=== PATIENT | female | born 1960 | race Caucasian/White ===

== ENCOUNTER 2016-09-10 18:15 | Inpatient (IN) | payer MEDICARE ==
[~2016-09-10] VITALS: Ht 154.9 cm; Wt 113.4 kg
[~2016-09-10 18:15] MED LIST: CIPR500T94 PO; CLON0.5T PO; DABI150C PO; DICY10CA3 PO; DICY10CA53 PO; DIGO0.25 PO; FLUT16SP2 NS; HYDR-2672 PO; LEVO500T38 PO; LIDO700A4 TP; LISI10TA2 PO; METF500T4 PO; METH10TA2 PO; NORT25CA PO; NORT50CA PO; OMEP20TA PO; PANT40TA3 PO; PARO20TA2 PO; PARO20TA55 PO; SUCR1TAB PO; TEMA30CA PO; TRIA1CAP3 PO; TRIA1TAB3 PO; WARF1TAB PO; WARF2TAB PO; WARF2TAB7 PO; WARF5TAB PO; ZOLP10TA4 PO
[2016-09-10 19:52] LABS: BASO % 0 % (0-3); EOS % 3 % (0-3); HEMATOCRIT 34.3 % (36.0-47.0); HEMOGLOBIN 10.5 g/dL (12.0-15.5); LYMPH # 3.4 x10^3/uL (1.0-4.8); LYMPH % 35 % (24-48); MEAN CORPUSCULAR HEMOGLOBIN 23 pg (25-35); MEAN CORPUSCULAR HGB CONC 31 g/dL (31-37); MEAN CORPUSCULAR VOLUME 75 fL (79-100); MONO % 5 % (0-9); NEUT % 57 % (31-73); PLATELET COUNT 393 x10^3/uL (140-400); RED BLOOD COUNT 4.55 x10^6/uL (3.50-5.40); RED CELL DISTRIBUTION WIDTH 18.1 % (11.5-14.5); WHITE BLOOD COUNT 9.9 x10^3/uL (4.0-11.0)
[2016-09-10 20:11] LABS: INR 2.7 (0.8-1.1); PROTHROMBIN TIME PATIENT 27.3 SEC (11.7-14.0)
--- NOTE | 2016-09-10 20:33 | RAD ---
PROCEDURE CT head without contrast HISTORY Increasing left-sided weakness TECHNIQUE Noncontrast axial cross sectional CT scanning of the head was performed. COMPARISON May 28, 2008 FINDINGS No acute intracranial hemorrhage or midline shift or mass-effect or hydrocephalus or extra-axial fluid collection is seen. No focal hypodense area is seen to indicate an acute infarct or edema radiographically. No skull fracture or pneumocephalus is seen. No opacification of the mastoid sinuses or the paranasal sinuses is seen. The maxillary sinuses are not completely seen in this study. IMPRESSION No acute intracranial abnormality is seen. PQRS Statement: One or more of the following individualized dose reduction techniques were utilized for this study: 1. Automated exposure control. 2. Adjustment of the mA and/or kV according to patient size. 3. Use of iterative reconstruction technique. Electronically signed by: Endy Sanders MD (Sep 10, 2016 20:32:51)
[2016-09-10 21:33] LABS: CALCIUM 9.1 mg/dL (8.5-10.1); CREATININE 2.1 mg/dL (0.6-1.0); GFR 24.3; POTASSIUM 5.1 mmol/L (3.5-5.1)
[2016-09-10 21:39] LABS: ALBUMIN 3.7 g/dL (3.4-5.0); TOTAL BILIRUBIN 0.2 mg/dL (0.2-1.0); TOTAL PROTEIN 7.5 g/dL (6.4-8.2)
[2016-09-10 21:46] LABS: BILIRUBIN,URINE NEGATIVE (NEG); GLUCOSE,URINE NEGATIVE (NEG); NITRITE,URINE NEGATIVE (NEG); PH,URINE 5.5; PROTEIN,URINE NEGATIVE (NEG-TRACE); UROBILINOGEN,URINE 0.2 mg/dL (0.2 mg/dL)
[2016-09-10 21:53] LABS: BARBITURATES NEG (NEG); BENZODIAZEPINES POS (NEG); CANNABINOIDS NEG (NEG); COCAINE NEG (NEG); METHADONE NEG (NEG); OPIATES POS (NEG); PHENCYCLIDINE NEG (NEG)
[2016-09-10 21:55] LABS: ETHANOL, URINE NEG (NEG); RBC,URINE 0 /HPF (0-2)
[2016-09-10 21:56] LABS: BACTERIA,URINE 0 /HPF (0-FEW); SQUAMOUS EPITHELIAL CELL,UR OCC /LPF
[2016-09-10] MEDS ORDERED: IV NORMAL SALINE 1000ML BAG 1,000 ML IV ONE (22:00)
[2016-09-10] MEDS ORDERED: FENTANYL PF 100 MCG/2 ML VIAL. ONE (22:01)
[2016-09-10] MEDS ORDERED: NITROGLYCERIN SUBLINGUAL 0.4 MG BOTTLE OF 25. SL ONE (22:01)
[2016-09-10] MEDS ORDERED: ONDANSETRON PF 4 MG/2 ML VIAL. ONE (22:01)
[2016-09-10] MEDS: FENTANYL PF 100 MCG/2 ML VIAL. IV PRN ×2 (22:06→22:43)
[2016-09-10] MEDS: NITROGLYCERIN SUBLINGUAL 0.4 MG BOTTLE OF 25. SL PRN (22:09)
[2016-09-10] MEDS ORDERED: ONDANSETRON PF 4 MG/2 ML VIAL. IV ONE (22:30)
[2016-09-10] MEDS ORDERED: ACETAMINOPHEN 325 MG TABLET. PO ONE (22:30)
--- NOTE | 2016-09-10 23:12 | ED.ADGEN ---
Past Medical History Past Medical History: A-Fib, CAD, COPD, Fibromyalgia, IBS, Other Additional Past Medical Histor: Ulcer, tremors, histoplasmosis Past Surgical History: Appendectomy, Cholecystectomy, Hysterectomy, Tonsillectomy Additional Past Surgical Histo: pericardial window Alcohol Use: None Drug Use: None Adult General Chief Complaint Chief Complaint: CHEST WALL PAIN HPI HPI Patient is a 56 year old woman with a history of COPD, CAD, hypertension, fibromyalgia, who presents to the emergency department with multiple complaints. Patient states that she has been experiencing palpitations, generalized weakness, chest pain across anterior portion of her chest, and increasing weakness and her left upper and lower extremity over the past several days. Patient states that this consolation of symptoms brought her to the ED after she discussed them with her fancy wire drawer, Dr. Nielsen. She did recently have a Holter monitor, but has not yet received the results. Patient states that she is not having chest pain currently, states the pain is located in the center of her chest, and comes and goes, described as a sharp pressure- like sensation, associated with palpitations. Patient states that she has not actually had a seizure activity or passed out, but has felt like she is going to pass out at times, states that she is also having difficulty ambulating with weakness in her left upper and lower extremity which is chronic, due to a neurologic condition. She denies any new injuries, any fevers or chills, any cough, any GI or complaints, states she has had decreased urinary output over the past 2 days. Review of Systems Review of Systems Constitutional: Denies fever or chills. [] Eyes: Denies change in visual acuity. [] HENT: Denies nasal congestion or sore throat. [] Respiratory: Denies cough or shortness of breath. [] Cardiovascular: Chest pain, no edema. GI: Denies abdominal pain, nausea, vomiting, bloody stools or diarrhea. [] : Denies dysuria. [] Musculoskeletal: Denies back pain or joint pain. [] Integument: Denies rash. [] Neurologic: Denies headache, complaining of worsening left upper extremity and lower extremity weakness. No sensory changes. [] Endocrine: Denies polyuria or polydipsia. [] Lymphatic: Denies swollen glands. [] Psychiatric: Denies depression or anxiety. [] Allergies Allergies Allergies Coded Allergies Type Severity Reaction Last Updated Verified Penicillins Allergy Severe rash, swelling 05/24/14 Yes Sulfa (Sulfonamide Antibiotics) Allergy Severe rash 04/03/15 Yes aspirin Allergy Severe rash, vomiting 04/03/15 Yes iodine Allergy Severe rash 04/03/15 Yes morphine Allergy Severe Rash, swelling 05/24/14 No Beta-Blockers (Beta-Adrenergic Bloc Allergy Intermediate Hives 08/24/14 Yes NSAIDS (Non-Steroidal Anti-Inflamma Allergy Mild Hives 11/09/14 Yes Physical Exam Physical Exam Constitutional: Well developed, well nourished, mildly flushed and diaphoretic, no acute distress, non-toxic appearance. [] HENT: Normocephalic, atraumatic, bilateral external ears normal, oropharynx moist, no oral exudates, nose normal. [] Eyes: PERRLA, EOMI, conjunctiva normal, no discharge. [] Neck: Normal range of motion, no tenderness, supple, no stridor. [] Cardiovascular:Heart rate regular rhythm, no murmur , S1, S2, rubs or gallops. Unable to reproduce chest pain with palpation, no crepitus or tenderness. [] Lungs & Thorax: Diminished breath sounds at bases bilaterally, no wheezing rhonchi or rales noted. [] Abdomen: Bowel sounds normal, soft, no rebound, rigidity, no guarding, no tenderness, no masses, no pulsatile masses. [] Skin: Warm, dry, no erythema, no rash. [] Back: No tenderness, no CVA tenderness. [] Extremities: No tenderness, no cyanosis, no clubbing, ROM intact, no edema. Negative Homans sign. [] Neurologic: Alert and oriented X 3, normal motor function, normal sensory function, no focal deficits noted. [] Psychologic: Affect normal, judgement normal, mood normal. [] Current Patient Data Vital Signs Vital Signs Date Time Temp Pulse Resp B/P Pulse Ox O2 Delivery O2 Flow Rate FiO2 09/10/16 18:30 98.5 77 22 131/72 97 Room Air 98.5 Lab Values Laboratory Tests Test 09/10/16 19:20 09/10/16 21:30 White Blood Count 9.9x10^3/uL (4.0-11.0) Red Blood Count 4.55x10^6/uL (3.50-5.40) Hemoglobin 10.5g/dL (12.0-15.5) L Hematocrit 34.3% (36.0-47.0) L Mean Corpuscular Volume 75fL (79-100) L Mean Corpuscular Hemoglobin 23pg (25-35) L Mean Corpuscular Hemoglobin Concent 31g/dL (31-37) Red Cell Distribution Width 18.1% (11.5-14.5) H Platelet Count 393x10^3/uL (140-400) Neutrophils (%) (Auto) 57% (31-73) Lymphocytes (%) (Auto) 35% (24-48) Monocytes (%) (Auto) 5% (0-9) Eosinophils (%) (Auto) 3% (0-3) Basophils (%) (Auto) 0% (0-3) Neutrophils # (Auto) 5.7x10^3uL (1.8-7.7) Lymphocytes # (Auto) 3.4x10^3/uL (1.0-4.8) Monocytes # (Auto) 0.5x10^3/uL (0.0-1.1) Eosinophils # (Auto) 0.3x10^3/uL (0.0-0.7) Basophils # (Auto) 0.0x10^3/uL (0.0-0.2) Prothrombin Time 27.3SEC (11.7-14.0) H Prothrombin Time INR 2.7 (0.8-1.1) H PTT 75SEC (24-38) H Sodium Level 139mmol/L (136-145) Potassium Level 5.1mmol/L (3.5-5.1) Chloride Level 103mmol/L (98-107) Carbon Dioxide Level 24mmol/L (21-32) Anion Gap 12 (6-14) Blood Urea Nitrogen 37mg/dL (7-20) H Creatinine 2.1mg/dL (0.6-1.0) H Estimated GFR (Cockcroft-Gault) 24.3 BUN/Creatinine Ratio 18 (6-20) Glucose Level 114mg/dL (70-99) H Calcium Level 9.1mg/dL (8.5-10.1) Total Bilirubin 0.2mg/dL (0.2-1.0) Aspartate Amino Transferase (AST) 56U/L (15-37) H Alanine Aminotransferase (ALT) 54U/L (14-59) Alkaline Phosphatase 107U/L (46-116) Troponin I Quantitative < 0.017ng/mL (0.000-0.055) WO-Rss-T-Type Natriuretic Peptide 134pg/mL (0-124) H Total Protein 7.5g/dL (6.4-8.2) Albumin 3.7g/dL (3.4-5.0) Albumin/Globulin Ratio 1.0 (1.0-1.7) Lipase 272U/L (73-393) Thyroid Stimulating Hormone (TSH) 1.962uIU/mL (0.358-3.74) Urine Color Yellow Urine Clarity Clear Urine pH 5.5 Urine Specific [place] 1.010 Urine Protein Negativemg/dL (NEG-TRACE) Urine Glucose (UA) Negativemg/dL (NEG) Urine Ketones (Stick) Negativemg/dL (NEG) Urine Blood Negative (NEG) Urine Nitrite Negative (NEG) Urine Bilirubin Negative (NEG) Urine Urobilinogen Dipstick 0.2mg/dL (0.2 mg/dL) Urine Leukocyte Esterase Small (NEG) Urine RBC 0/HPF (0-2) Urine WBC 1-4/HPF (0-4) Urine Squamous Epithelial Cells Occ/LPF Urine Transitional Epithelial Cells Occ/LPF Urine Renal Epithelial Cells Occ/LPF Urine Bacteria 0/HPF (0-FEW) Urine Hyaline Casts Occasional/HPF Urine Granular Casts Occasional/HPF Urine Opiates Screen Pos (NEG) Urine Methadone Screen Neg (NEG) Urine Barbiturates Neg (NEG) Urine Phencyclidine Screen Neg (NEG) Urine Amphetamine/Methamphetamine Neg (NEG) Urine Benzodiazepines Screen Pos (NEG) Urine Cocaine Screen Neg (NEG) Urine Cannabinoids Screen Neg (NEG) Urine Ethyl Alcohol Neg (NEG) Laboratory Tests 09/10/16 19:20 Laboratory Tests 09/10/16 19:20 EKG EKG C: Sinus rhythm, heart rate 80 beats minute, incomplete right bundle- branch block noted, QTc of or 28, GA of 112, QRS of 96, patient with T-wave inversions noted in lead V3, with flattening in inferior leads, abnormal ECG, does not meet STEMI criteria. As interpreted by me. [] Radiology/Procedures Radiology/Procedures Chest x-ray: One view: Normal cardiopulmonary silhouette, no infiltrates, no effusions, no soft tissue or bony abnormalities identified. As interpreted by me. [] Course & Med Decision Making Course & Med Decision Making Pertinent Labs and Imaging studies reviewed. (See chart for details) Chest wall pain resolved in the emergency department, however with her constellation of symptoms, a CT of the head along with x-ray of the chest and laboratory studies were obtained. Patient noted to have an elevated creatinine at 2.1, previously was 1.1, with a an elevated blood urea nitrogen. Patient states that previously she has had these type of feelings when she has been dehydrated, therefore IV fluids were initiated in the ED. Patient's laboratory studies otherwise did not reveal a concerning findings, including a negative troponin. I did discuss these findings with the patient, and with Dr. Lewis, on-call for her primary care provider, he accepted the patient to his service, and she is agreeable with the plan for admission to the hospital for IV hydration, serial enzymes, consultation with cardiology, bridge orders entered per Dr. Lewis request. Dragon Disclaimer Dragon Disclaimer This electronic medical record was generated, in whole or in part, using a voice recognition dictation system. Departure Impression: Primary Impression: Dehydration Additional Impressions: Generalized weakness Chest wall pain Disposition: ADMITTED INPATIENT Admitting Physician: Ty Lewis Condition: IMPROVED Problem Qualifiers GUERA SHIRLEY DO Sep 10, 2016 23:12
[2016-09-10 23:26] LABS: OBC FLU VALID
[2016-09-11] VITALS (7 sets, daily range): BP systolic 102–152; BP diastolic 54–109
[2016-09-11] MEDS ORDERED: METO50TA10 PO (00:43)
[2016-09-11] MEDS ORDERED: HYDR-2672 PO (00:43)
[2016-09-11] MEDS ORDERED: FLUC150T2 PO (00:43)
[2016-09-11] MEDS ORDERED: SUCR1TAB PO (00:43)
[2016-09-11] MEDS ORDERED: NYST15CR TP (00:43)
[2016-09-11] MEDS ORDERED: LISI-334 PO (00:43)
[2016-09-11] MEDS ORDERED: TRIA1CAP3 PO (00:43)
[2016-09-11] MEDS ORDERED: FURO40TA4 PO (00:43)
[2016-09-11] MEDS ORDERED: GABA300C8 PO (00:43)
[2016-09-11] MEDS ORDERED: BACL10TA PO (00:43)
[2016-09-11] MEDS ORDERED: WARF3TAB7 PO (00:43)
[2016-09-11] MEDS: NITROGLYCERIN SUBLINGUAL 0.4 MG BOTTLE OF 25. SL PRN ×2 (00:53→01:00)
--- NOTE | 2016-09-11 06:39 | EKG ---
[facility] [address] [place] [address] Test Date: 2016-09-10 Test Time: 18:31:30 Pat Name: NICO ADRIAN Department: Room: [facility] Gender: F Recovery Room Rn: : [id number] Requested By: GUERA SHIRLEY Order Number: [id number] Reading MD: Spring Nielsen Measurements Intervals [place] Rate: 80 P: 170 OR: 112 QRS: 23 QRSD: 96 T: 28 QT: 368 QTc: 428 Interpretive Statements SINUS RHYTHM LEFT ATRIAL ABNORMALITY INCOMPLETE RIGHT BUNDLE BRANCH BLOCK ABNORMAL ECG Electronically Signed On 09-15-2016 19:34:45 CERTIFIED SURGICAL TECHNICIAN by Spring Nielsen
--- NOTE | 2016-09-11 08:59 | RAD ---
EXAM: Chest one view. HISTORY: Shortness of breath, cough, palpitations. COMPARISON: 07/25/2015. FINDINGS: A frontal view of the chest is obtained. The inspiration is small with bibasilar atelectasis. There is a calcified granuloma in the right base. There is no pneumothorax or pleural effusion. The heart is mildly enlarged. There are changes of coronary artery bypass grafting. IMPRESSION: 1. Small inspiration with bibasilar atelectasis. 2. Mild cardiomegaly.
[2016-09-11] MEDS ORDERED: CLONAZEPAM 0.5 MG TABLET PO PRN (09:45)
[2016-09-11] MEDS: LIDOCAINE (700MG/PATCH) PATCH. TP SCH ×2 (10:00→11:08)
[2016-09-11] MEDS: GABAPENTIN 300 MG CAPSULE. PO SCH ×2 (10:57→20:36)
[2016-09-11] MEDS: HYDROCODONE/APAP 10/325 TABLET. PO PRN ×2 (10:57→15:38)
[2016-09-11] MEDS: PAROXETINE 20 MG TABLET. PO SCH (10:58)
[2016-09-11] MEDS: METOPROLOL SUCC 24HR ER 50 MG TAB.ER.24H. PO SCH (10:58)
[2016-09-11] MEDS: FUROSEMIDE 40 MG TABLET PO SCH (10:59)
[2016-09-11] MEDS: DICYCLOMINE HCL 10 MG CAPSULE PO SCH ×3 (10:59→20:36)
[2016-09-11] MEDS: BACLOFEN 10 MG TABLET PO SCH ×3 (11:03→20:36)
[2016-09-11] MEDS: PANTOPRAZOLE 40 MG TABLET. PO SCH (11:03)
[2016-09-11] MEDS: FLUTICASONE 50MCG/NASAL SPRAY 16GM BOTTLE. NS SCH (11:04)
[2016-09-11] MEDS: SUCRALFATE 1 GM TABLET. PO SCH ×3 (12:18→20:36)
[2016-09-11] MEDS: IV 1/2 NORMAL SALINE 1,000 ML IV SCH ×2 (12:19→20:42)
[2016-09-11] MEDS ORDERED: WARFARIN 3 MG TABLET. PO SCH (16:00)
[2016-09-11] MEDS ORDERED: METFORMIN 500 MG TABLET. PO SCH (17:00)
[2016-09-11] MEDS ORDERED: TEMAZEPAM 15 MG CAPSULE PO SCH (21:00)
--- NOTE | 2016-09-11 22:06 | HP ---
ADMIT DATE: 09/11/2016 CHIEF COMPLAINT: Generalized weakness. HISTORY OF PRESENT ILLNESS AND HOSPITAL COURSE: The patient is a 56-year-old female who began having increasing weakness, feeling she was going to pass out, also experiencing palpitations and chest pain across the front of her chest and in her upper extremities, which was reproducible with movement. The patient called her machine presser who recently had a Holter monitor on her but no results were present yet. She was recommended to go to the Emergency Room for evaluation. During evaluation, no cardiac findings were noted, but the patient was found to be markedly dehydrated with a BUN of 37, creatinine of 2.1 with baseline BUN and creatinine of 13 and 0.9. The patient was weak and unable to care for herself; therefore, she was admitted for further evaluation, hydration and PT and OT modalities. PAST MEDICAL HISTORY: Significant for: 1. History of ____ with pericardial effusion status post pericardial window. 2. Fibromyalgia. 3. Chronic atrial fibrillation. 4. Type 2 diabetes. 5. Hypertension. 6. Irritable bowel syndrome. 7. Fibromyalgia. 8. Generalized anxiety disorder. 9. Obesity. PAST SURGICAL HISTORY: Significant for sternotomy for pericardial window, tubal ligation, hysterectomy, eye surgery, tonsil and adenoidectomy and appendectomy. FAMILY HISTORY: Noncontributory at this time. SOCIAL HISTORY: The patient quit smoking in 1982. She does not use alcohol, lives with her who assists in her care. She is minimally mobile and uses a wheelchair frequently. ALLERGIES: THE PATIENT HAS MULTIPLE ALLERGIES INCLUDING PENICILLIN, SULFA, ASPIRIN, MOTRIN, CELEBREX, INDOMETHACIN, IODINE, MORPHINE AND ZEBETA. REVIEW OF SYSTEMS: Negative for diarrhea, fever, cough or congestion but is significant for new syncope, palpitations, weakness and chest pains. PHYSICAL EXAMINATION: GENERAL: This is a morbidly obese female in no apparent distress after 12 hours of hospitalization and IV fluids. HEENT: Benign. NECK: Supple. CARDIAC: Irregularly irregular. LUNGS: Clear. ABDOMEN: Soft and nontender. EXTREMITIES: Showed 2+ pulses without significant edema. NEUROLOGIC: Intact. ASSESSMENT: 1. Acute renal failure due to prerenal azotemia. 2. Chronic pain issues. 3. Morbid obesity. 4. Generalized weakness and debilitation. PLAN: To proceed with IV hydration, PT and OT modalities and monitor the patient's symptoms and plan for discharge once stable. SHANNAN VIZCAINO MD DR: ARNOLD/jinny JOB#: [id number] / [id number]
--- NOTE | 2016-09-11 23:04 | ACF ---
Admission Forms Criteria DEHYDRATION Clinical Indications for Admission to Inpatient Care (Place 'X' for any and all applicable criteria): Admission is indicated for ANY ONE of the following (1)(2)(3)(4)(5): [X]I. Inpatient admission required rather than observation care (see Dehydration: Observation Care guideline as appropriate) because of ANY ONE of the following: [ ]a) Vomiting that is severe or persistent [ ]b) Severe electrolyte abnormalities requiring inpatient care [ ]c) Hemodynamic instability [ ]d) IV fluid to replace significant ongoing losses (greater than 3 L/m2 per day (10) (11) [ ]e) Parenteral nutrition regimen that must be implemented on inpatient basis [X]f) Other condition,treatment or monitoring requiring inpatient admission [ ]II. Serious cause for dehydration requiring acute hospitalization (eg, bowel obstruction, increased intracranial pressure, infectious cause) Extended stay beyond goal length of stay may be needed for(1)(3 )(4)(17): [ ]a) Chronic severe dehydration [ ]b) Persistent vital sign changes, severe electrolyte imbalance, or diagnosed cause of dehydration that requires continued hospitalization (eg, bowel obstruction, increased intracranial pressure) [ ]c) Older patients (65 years or older) [ ]d) Severe comorbid illness (eg, renal failure, heart failure, poorly controlled diabetes) The original [email or web address] content created by [email or web address] has been revised. The portions of the content which have been revised are identified through the use of italic text or in bold, and [facility] has neither reviewed nor approved the modified material. All other unmodified content is copyright [email or web address]. Please see references footnoted in the original [email or web address] edition 2016 Admission Criteria Met?: Yes BREANA LOPEZ Sep 11, 2016 23:04
[2016-09-12 04:14] LABS: BASO # 0.1 x10^3/uL (0.0-0.2); BASO % 1 % (0-3); EOS % 3 % (0-3); HEMOGLOBIN 9.8 g/dL (12.0-15.5); LYMPH # 3.6 x10^3/uL (1.0-4.8); LYMPH % 46 % (24-48); MEAN CORPUSCULAR HEMOGLOBIN 23 pg (25-35); MEAN CORPUSCULAR HGB CONC 31 g/dL (31-37); MEAN CORPUSCULAR VOLUME 75 fL (79-100); MONO % 6 % (0-9); NEUT % 45 % (31-73); PLATELET COUNT 348 x10^3/uL (140-400); RED BLOOD COUNT 4.27 x10^6/uL (3.50-5.40); RED CELL DISTRIBUTION WIDTH 18.1 % (11.5-14.5)
[2016-09-12 04:18] LABS: INR 2.5 (0.8-1.1); PROTHROMBIN TIME PATIENT 25.7 SEC (11.7-14.0)
[2016-09-12 04:24] LABS: CALCIUM 8.8 mg/dL (8.5-10.1); CREATININE 1.4 mg/dL (0.6-1.0); GFR 38.8; POTASSIUM 4.5 mmol/L (3.5-5.1)
[2016-09-12 07:27] VITALS: BP 128/63
[2016-09-12] MEDS ORDERED: METFORMIN 500 MG TABLET. PO SCH (08:00)
[2016-09-12] MEDS: PANTOPRAZOLE 40 MG TABLET. PO SCH (08:21)
[2016-09-12] MEDS: DICYCLOMINE HCL 10 MG CAPSULE PO SCH (08:21)
[2016-09-12] MEDS: FUROSEMIDE 40 MG TABLET PO SCH (08:21)
[2016-09-12] MEDS: BACLOFEN 10 MG TABLET PO SCH (08:21)
[2016-09-12] MEDS: PAROXETINE 20 MG TABLET. PO SCH (08:21)
[2016-09-12 08:22] VITALS: BP 128/63
[2016-09-12] MEDS: METOPROLOL SUCC 24HR ER 50 MG TAB.ER.24H. PO SCH (08:22)
[2016-09-12] MEDS: SUCRALFATE 1 GM TABLET. PO SCH (08:22)
[2016-09-12] MEDS: GABAPENTIN 300 MG CAPSULE. PO SCH (08:22)
[2016-09-12] MEDS: FLUTICASONE 50MCG/NASAL SPRAY 16GM BOTTLE. NS SCH (08:23)
[2016-09-12] MEDS ORDERED: METO50TA10 PO (08:39)
--- NOTE | 2016-09-12 18:37 | DS ---
DATE OF DISCHARGE: 09/12/2016 ADMITTING DIAGNOSES: 1. Acute on chronic renal failure. 2. Prerenal azotemia. 3. Morbid obesity. 4. Generalized weakness and debilitation. 5. Chronic pain. ____ DIAGNOSES: 1. Chronic atrial fibrillation. 2. Fibromyalgia. 3. Type 2 diabetes. 4. Hypertension. 5. Irritable bowel syndrome. 6. Generalized anxiety disorder. 7. 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 8. History of Mycobacterium avium infection, resolved. 9. Metabolic encephalopathy. HISTORY OF PRESENT ILLNESS AND HOSPITAL COURSE: This patient is a 56-year-old female who came to the hospital for increasing weakness and fatigue. She also had associated chest wall pains and confusion. During Emergency Room evaluation, she was found to have marked dehydration with a BUN of 37 and a creatinine of 2.1 with a baseline of 0.9 creatinine. She was hydrated and PT and OT modalities were ordered. The patient improved with two bags of IV fluids over 24-48 hours and PT and OT modalities ____. The patient independent. The patient was back to baseline, although creatinine was not back to baseline and was at 1.4. The patient was taking p.o. diet well and was asking to go home; therefore, she was discharged to home with rapid follow up in the office in 1-2 weeks. Of note, the patient will be discontinued on triamterene/hydrochlorothiazide and did have stable to low blood pressures during hospital stay. DISCHARGE MEDICATIONS: The patient's discharge medicines will be as follows: Baclofen 10 mg t.i.d., clonazepam 0.25 mg q. 6 p.r.n., dicyclomine 10 mg t.i.d., Flonase nasal spray two sprays each nostril daily, gabapentin 300 mg b.i.d., Lortab 10 ____ q. 4 hours p.r.n. pain, metformin 500 mg b.i.d., Pamelor 50 mg at bedtime, Protonix 40 mg daily, Paxil 20 mg daily, Carafate 1 g t.i.d. with meals, temazepam 30 mg at bedtime, Coumadin ____ mg daily, metoprolol 50 mg at bedtime. SHANNAN VIZCAINO MD DR: Casey JOB#: [id number] / [id number]
== END 2016-09-12 11:05 | disposition home or self-care (01) | DRG 682 ==
LOC: ER 18:15 → 6 SOUTH 21:48
PROVIDERS: ADMIT Family Medicine; ATTEND Family Medicine
DX: N17.0 Acute kidney failure with tubular necrosis (principal); G93.41 Metabolic encephalopathy; Z68.42 Body mass index [BMI] 45.0-49.9, adult; E66.01 Morbid (severe) obesity due to excess calories; M79.7 Fibromyalgia; K58.9 Irritable bowel syndrome, unspecified; J44.9 Chronic obstructive pulmonary disease, unspecified; I48.2 Chronic atrial fibrillation; I25.10 Atherosclerotic heart disease of native coronary artery without angina pectoris; E11.22 Type 2 diabetes mellitus with diabetic chronic kidney disease; E86.0 Dehydration; F41.1 Generalized anxiety disorder; G89.29 Other chronic pain; I12.9 Hypertensive chronic kidney disease with stage 1 through stage 4 chronic kidney disease, or unspecified chronic kidney disease; N18.9 Chronic kidney disease, unspecified; R56.9 Unspecified convulsions; B39.9 Histoplasmosis, unspecified; Z79.899 Other long term (current) drug therapy; Z87.891 Personal history of nicotine dependence; Z90.49 Acquired absence of other specified parts of digestive tract; Z88.5 Allergy status to narcotic agent; Z88.0 Allergy status to penicillin; Z88.2 Allergy status to sulfonamides; Z88.8 Allergy status to other drugs, medicaments and biological substances; Z88.6 Allergy status to analgesic agent; Z91.041 Radiographic dye allergy status; Z90.710 Acquired absence of both cervix and uterus; Z98.51 Tubal ligation status
CPT/HCPCS: 36415; 70450; 71010; 80048; 80053; 81001; 82947; 83690; 83880; 84443; 84484; 85027; 85610; 85730; 87086; 87804; 93005; 96374; 96375; 96376; G0481; J2405; J3010; J7030; 99285-25

== ENCOUNTER → 2019-03-09 | Outpatient (CLI) | payer BC ==
[~2019-03-09] MED LIST changes: +BACL10TA PO; +FLUC150T2 PO; +FURO40TA4 PO; +GABA300C18 PO; -HYDR-2672 PO; +HYDR-2769 PO; +IOHEXOL 350 MG/ML 100 ML VIAL. IV ONE; -LEVO500T38 PO; +LEVO500T59 PO; +LISI-334 PO; +METF500T16 PO; -METF500T4 PO; +METO50TA29 PO; +NYST15CR TP; -OMEP20TA PO; +OMEP20TA8 PO; -PANT40TA3 PO; +PANT40TA77 PO; -PARO20TA2 PO; +PARO20TA3 PO; -PARO20TA55 PO; +PARO20TA99 PO; +WARF-78 PO; -WARF1TAB PO; +WARF1TAB74 PO; -WARF2TAB7 PO; +WARF2TAB96 PO; +WARF3TAB50 PO; -WARF5TAB PO
--- NOTE | 2019-03-09 12:46 | RAD ---
EXAM: CT chest with contrast - pulmonary embolus protocol CLINICAL HISTORY: PULMONARY HTN, ENLARGED PULMONARY ARTERY COMPARISON: Chest x-ray 07/21/2018, CT 11/14/2014 TECHNIQUE: CT of the chest following the administration of intravenous contrast during the pulmonary arterial phase. Axial, coronal and sagittal reformatted images were generated including MIP images. ---PQRS compliance statement - One or more of the following individualized dose reduction techniques were utilized for this study: 1. Automated exposure control 2. Adjustment of the mA and/or kV according to patient size 3. Use of iterative reconstruction technique--- FINDINGS: CHEST: Diagnostic quality: Adequate. Pulmonary emboli: None seen Right heart strain: None Pulmonary arteries: Pulmonary arterial trunk measures approximately 4.2 cm in transverse dimension. The right main pulmonary artery measures 3.1 cm and the left main pulmonary artery measures 2.5 cm. The heart is mildly enlarged. No pericardial effusion. Calcified granuloma right lower lobe. Vague linear and groundglass opacities in the lingula and lower lobes likely scarring/atelectasis. No lobar consolidation. No pleural effusion or pneumothorax. No mediastinal or hilar lymphadenopathy. Calcified mediastinal and hilar lymph nodes are seen. No axillary lymphadenopathy. Visualized Upper abdomen: A 7 mm right adrenal nodule contains fat density, likely myelolipoma. Suspect hepatic steatosis although evaluation limited given phase of contrast. Bones: Degenerative changes of spine are seen. IMPRESSION: 1. Prominence of pulmonary arterial trunk may be seen with pulmonary arterial hypertension, the pulmonary trunk measures up to 4.2 cm in transverse dimension. 2. Linear and groundglass opacities in the lower lobes and lingula likely scarring/atelectasis. Electronically signed by: Cisco Gonzalez MD (03/09/2019 12:44 PM) [id number]
== END | disposition home or self-care (01) ==
LOC: CT 09:56
PROVIDERS: ATTEND Family Medicine
DX: J84.10 Pulmonary fibrosis, unspecified (principal); E27.9 Disorder of adrenal gland, unspecified; M47.814 Spondylosis without myelopathy or radiculopathy, thoracic region; I28.8 Other diseases of pulmonary vessels; I27.20 Pulmonary hypertension, unspecified; E11.9 Type 2 diabetes mellitus without complications; F17.200 Nicotine dependence, unspecified, uncomplicated; Z86.69 Personal history of other diseases of the nervous system and sense organs; Z90.49 Acquired absence of other specified parts of digestive tract; Z90.710 Acquired absence of both cervix and uterus; Z79.01 Long term (current) use of anticoagulants
CPT/HCPCS: 71275; Q9967

== ENCOUNTER → 2020-09-14 | Outpatient (CLI) | payer BC ==
[~2020-09-14] MED LIST changes: -IOHEXOL 350 MG/ML 100 ML VIAL. IV ONE; -LISI-334 PO; +LISI10TA16 PO; -LISI10TA2 PO; +LISI20TA18 PO; -WARF-78 PO; +WARF1TAB2 PO; -WARF1TAB74 PO; +WARF5TAB2 PO
--- NOTE | 2020-09-14 14:50 | KCIC ---
MRI of the brain without contrast 09/14/2020 Clinical History: Worsening right hand tremors. Technique: Unenhanced T1-weighted sagittal and axial, T2-weighted axial and coronal and FLAIR, gradie nt echo and diffusion-weighted axial images of the brain were obtained. Findings: Comparison study is dated 09/16/2016. Some of the images are degraded by patient motion. There is generalized parenchymal atrophy. Patchy, confluent and multiple small focal areas of increas ed signal intensity are seen within the periventricular and subcortical white matter of both cerebral hemispheres on the FLAIR and T2-weighted images consistent with areas of mild small vessel ischemic disease. These have not significantly changed. No acute parenchymal abnormality is seen. No extra-axial fluid collection is seen. There is no MRI ev idence of acute ischemia/infarction. Mild mucosal thickening is seen scattered throughout the paranasal sinuses. There are are minimal jef ateral mastoid effusions. Normal flow voids are seen within the major vascular structures surrounding the brain parenchyma. Expansion and heterogeneity of the marrow within the right parietal bone is ag ain seen which may reflect Paget's disease. Impression: No acute parenchymal abnormality is seen. Electronically signed by: Shelton Fortune MD (09/14/2020 2:47 PM) [id number]
== END ==
LOC: KCIC MRI 08:22
PROVIDERS: ATTEND Nurse Practitioner Family
DX: G25.9 Extrapyramidal and movement disorder, unspecified (principal)
CPT/HCPCS: 70551

== ENCOUNTER 2021-08-20 11:16 | Inpatient (IN) | payer MEDICARE, MEDICAID ==
[~2021-08-20] VITALS: Ht 154.9 cm; Wt 62.0 kg
[~2021-08-20 11:16] MED LIST changes: -FLUC150T2 PO; +FLUC150T6 PO; +METH-572 PO; -METH10TA2 PO
--- NOTE | 2021-08-20 11:19 | PHYS DOC ---
Past Medical History Past Medical History: A-Fib, CAD, COPD, Fibromyalgia, IBS, Other Additional Past Medical Histor: Ulcer, tremors, histoplasmosis Past Surgical History: Appendectomy, Cholecystectomy, Hysterectomy, Tonsillectomy Additional Past Surgical Histo: pericardial window Smoking Status: Never Smoker Alcohol Use: None Drug Use: None General Adult HPI: HPI: Patient is a 61 year old who presents from home, via EMS, for report of progressively worsening dyspnea and chest pain. 1 week ago, she was diagnosed with Covid. She had been having symptoms for several days prior to testing positive. Her is currently here hospitalized with complications from COVID-19. She had only received her first Covid vaccination on August 04, so just a few weeks ago. She has reported progressively worsening cough, headache, congestion, sore throat, fevers and chills, as well as nausea and vomiting. Her chest pain has been constant, described as sharp and pleuritic, her dyspnea has also been constant. Symptoms have been progressively worsening over the last 2 to 3 days. EMS noted hypoxia on room air. The patient does not normally require supplemental oxygen. She was placed on 4 L per nasal cannula, with improvement of oxygenation into the 90s. The patient reports no known history of lung disease, though her EMR does note COPD. She denies any history of tobacco use or current tobacco use. Review of Systems: Review of Systems: Constitutional: Fevers, chills, myalgias, fatigue Eyes: Denies change in visual acuity. [] HENT: Nasal congestion, sore throat Respiratory: Nonproductive cough, dyspnea. Denies hemoptysis Cardiovascular: Chest pain GI: She denies abdominal pain symptoms. She reports nausea, vomiting, diarrhea. : Denies urinary symptom Musculoskeletal: He has chronic, diffuse myalgias and arthralgias, she reports diffuse myalgias with current Covid infection. Integument: Denies rash. [] Neurologic: Headache. Denies focal weakness, dizziness, syncope Psychiatric: Denies depression or anxiety. [] Heart Score: C/O Chest Pain: Yes HEART Score for Chest Pain: HEART Score for Chest Pain Response (Comments) Value History Moderately Suspicious 1 ECG Nonspecific Repolarizatio 1 Age >45 - < 65 1 Risk Factors >3 Risk Factors or Hx CAD 2 Total 5 Risk Factors: Risk Factors: DM, Current or recent (<one month) smoker, HTN, HLP, family history of CAD, obesity. Risk Scores: Score 0 - 3: 2.5% MACE over next 6 weeks - Discharge Home Score 4 - 6: 20.3% MACE over next 6 weeks - Admit for Clinical Observation Score 7 - 10: 72.7% MACE over next 6 weeks - Early Invasive Strategies Allergies: Allergies: Allergies Coded Allergies Type Severity Reaction Last Updated Verified Penicillins Allergy Severe rash, swelling 05/24/14 Yes Sulfa (Sulfonamide Antibiotics) Allergy Severe rash 04/03/15 Yes aspirin Allergy Severe rash, vomiting 04/03/15 Yes iodine Allergy Severe rash 04/03/15 Yes morphine Allergy Severe Rash, swelling 05/24/14 No Beta-Blockers (Beta-Adrenergic Bloc Allergy Intermediate Hives 09/11/16 Yes NSAIDS (Non-Steroidal Anti-Inflamma Allergy Mild Hives 11/09/14 Yes Physical Exam: PE: Constitutional: Well developed, well nourished, no acute distress, non-toxic appearance. She is chronically ill-appearing. She appears older than stated age. She is at least moderately acutely ill. HENT: Normocephalic, atraumatic, oropharynx is patent, mucous membranes tacky. Eyes: Conjunctiva normal, no discharge. [] Neck: Normal range of motion, no tenderness, supple, no stridor. Trachea midline, no JVD Cardiovascular:Heart rate regular rhythm, +2 dorsalis pedis and +2 radial pulses bilaterally Lungs & Thorax: Mild to moderate tachypnea noted. Diminished breath sounds in bilateral bases. No retractions. Speaks in full and clear sentences. No wheezing noted. Upper and midlung escalante are clear. No central cyanosis. No stridor. Abdomen: Abdomen is obese, soft, nondistended, normal bowel sounds, no palpable pulsatile mass, no tenderness. Skin: Warm, dry, no erythema Back: No tenderness, no CVA tenderness. [] Extremities: No tenderness, no cyanosis, no clubbing, ROM intact, bilateral, symmetric lower extremity lymphedema, no pitting edema. Neurologic: She is awake, alert, oriented x3, moves all four extremities equally, gross motor function is normal, gross sensory function is normal, speech is clear and fluent, no facial asymmetry Psychologic: She is anxious but cooperative. EKG: EKG: EKG is interpreted at 1123 Rhythm is sinus Rate is 81 bpm marked artifact [place] is left No STEMI Radiology/Procedures: Radiology/Procedures: IMAGING REPORT Signed PATIENT: NICO ADRIAN AACCOUNT: [id number] : 1960 LOCATION: ER AGE: 61 SEX: F EXAM STATUS: REG ER ORD. PHYSICIAN: MARILYN MOORE DO REASON: cough, dyspnea, chest pain, COVID PROCEDURE: PORTABLE CHEST 1V EXAM: Chest, single view. HISTORY: Cough. Covid 19. COMPARISON: 07/21/2018 FINDINGS: A frontal view of the chest is obtained. There has been interval increase in multifocal interstitial and alveolar infiltrate. There is stable cardiomegaly and evidence of prior CABG. There is no pleural effusion or pneumothorax. IMPRESSION: 1. Increase in multifocal pneumonia. 2. Cardiomegaly. Electronically signed by: Suzy Freeman MD (08/20/2021 11:44 AM) [facility] DICTATED and SIGNED BY: SUZY FREEMAN MD DATE: 08/20/21 [id number] Course & Med Decision Making: Course & Med Decision Making Pertinent Labs and Imaging studies reviewed. (See chart for details) The patient is saturating well on supplemental nasal cannula oxygen. Oxygen saturations stable in the mid to high 90s. She is given a dose of IV Zofran for nausea. She is given IV and oral potassium chloride replacement. She is tolerating food, water and medications without difficulty. The patient initially failed to include the fact that she is taking warfarin for atrial fibrillation. I had initially explained that I had concern for PE, and I had recommended CT angiogram to check for pulmonary embolus, need for possible anticoagulation. The patient did not reveal that she takes warfarin until much later, she told the nurse and the admitting physician, and an INR was ordered, which returned to supratherapeutic. I canceled the order for the CT angiogram of her chest. She is given IV dexamethasone. I have explained my recommendation for admission and hospitalization secondary to hypoxic respiratory failure secondary to Covid pneumonia. She is comfortable with the plan of care. She should have her warfarin held, no evidence of active or life- threatening bleeding at this time, will not recommend emergency reversal, will defer further management to admitting physician, Dr. Knox. Reena Disclaimer: Reena Disclaimer: This electronic medical record was generated, in whole or in part, using a voice recognition dictation system. Departure Departure Impression: Primary Impression: Respiratory failure with hypoxia Qualified Codes: J96.01 - Acute respiratory failure with hypoxia Additional Impressions: COVID-19 Pneumonia due to COVID-19 virus Disposition: ADMITTED INPATIENT [facility] Condition[facility] (Dr. Knox) Referrals: SHANNAN VIZCAINO MD (PCP) MARILYN MOORE DO Aug 20, 2021 11:19
[2021-08-20] MEDS ORDERED: fentaNYL PF VIAL 100 MCG/2 ML VIAL IVP ONE (11:30)
[2021-08-20] MEDS ORDERED: DEXAMETHASONE SOD PHOS 4 MG/ML VIAL IVP ONE (11:30)
--- NOTE | 2021-08-20 11:47 | RAD ---
EXAM: Chest, single view. HISTORY: Cough. Covid 19. COMPARISON: 07/21/2018 FINDINGS: A frontal view of the chest is obtained. There has been interval increase in multifocal int erstitial and alveolar infiltrate. There is stable cardiomegaly and evidence of prior CABG. There is no pleural effusion or pneumothorax. IMPRESSION: 1. Increase in multifocal pneumonia. 2. Cardiomegaly. Electronically signed by: Suzy Erickson MD (08/20/2021 11:44 AM) [facility]
[2021-08-20] MEDS ORDERED: ONDANSETRON PF 4 MG/2 ML VIAL. ONE (12:13)
[2021-08-20] MEDS ORDERED: ONDANSETRON PF 4 MG/2 ML VIAL. IVP ONE (12:15)
[2021-08-20 12:48] LABS: BASO % 1 % (0-3); EOS % 0 % (0-3); HEMATOCRIT 43.4 % (36.0-47.0); HEMOGLOBIN 13.4 g/dL (12.0-15.5); LYMPH # 1.5 x10^3/uL (1.0-4.8); LYMPH % 22 % (24-48); MEAN CORPUSCULAR HEMOGLOBIN 26 pg (25-35); MEAN CORPUSCULAR HGB CONC 31 g/dL (31-37); MEAN CORPUSCULAR VOLUME 84 fL (79-100); MONO # 0.5 x10^3/uL (0.0-1.1); MONO % 7 % (0-9); NEUT # 4.7 x10^3/uL (1.8-7.7); NEUT % 71 % (31-73); PLATELET COUNT 213 x10^3/uL (140-400); RED BLOOD COUNT 5.15 x10^6/uL (3.50-5.40); RED CELL DISTRIBUTION WIDTH 15.5 % (11.5-14.5); WHITE BLOOD COUNT 6.7 x10^3/uL (4.0-11.0)
[2021-08-20 13:02] LABS: ALBUMIN 3.3 g/dL (3.4-5.0); ALBUMIN/GLOBULIN RATIO 0.7 (1.0-1.7); CALCIUM 8.4 mg/dL (8.5-10.1); GFR 56.2; MAGNESIUM 1.7 mg/dL (1.8-2.4); TOTAL BILIRUBIN 0.3 mg/dL (0.2-1.0); TOTAL PROTEIN 7.9 g/dL (6.4-8.2)
[2021-08-20 13:07] LABS: POTASSIUM 2.9 mmol/L (3.5-5.1)
[2021-08-20] MEDS ORDERED: POTASSIUM CHLORIDE 20 MEQ TABLET.ER. PO ONE (13:30)
[2021-08-20] MEDS: FAMOTIDINE 20 MG/2 ML VIAL IVP ONE ×2 (13:45→14:24)
--- NOTE | 2021-08-20 13:49 | PDOC1 ---
History and Physical Date of Service: DOS: DATE: 08/20/21 TIME: 13:48 Chief Complaint: Chief Complain: sob History of Present Illness: HPI: Patient is 61-year-old female presented to the emergency room today via EMS for worsening shortness of breath. Diagnosed with Covid a week ago but have been feeling symptoms for several days with more than. is actually admitted with Covid right now. Only has received 1 Covid vaccine. Already worsening cough congestion sore throat fevers. Patient also reporting pleuritic type chest pain especially with exertion. Checking a CT scan in emergency room. She does have A. fib on home warfarin and INR is around 6. In the emergency room required to be placed on 2 2 L nasal cannula. No home O2. Handful of allergies that she was unable to exactly specify to me but will avoid these drugs. Past Medical/Surgical History: PMH/PSH: Past Medical History: A-Fib, CAD, COPD, Fibromyalgia, IBS, Additional Past Medical Histor: Ulcer, tremors, histoplasmosis Past Surgical History: Appendectomy, Cholecystectomy, Hysterectomy, Tonsillectomy Additional Past Surgical Histo: pericardial window Smoking Status: Never Smoker Alcohol Use: None Drug Use: None Allergies: Allergies: Coded Allergies: Penicillins (Verified Allergy, Severe, rash, swelling, 05/24/14) Sulfa (Sulfonamide Antibiotics) (Verified Allergy, Severe, rash, 04/03/15) aspirin (Verified Allergy, Severe, rash, vomiting, 04/03/15) iodine (Verified Allergy, Severe, rash, 04/03/15) morphine (Unverified Allergy, Severe, Rash, swelling, 05/24/14) Beta-Blockers (Beta-Adrenergic Bloc (Verified Allergy, Intermediate, Hives, 09/11/16) Hives, vomiting, "throat closing" TOPROL is home med NSAIDS (Non-Steroidal Anti-Inflamma (Verified Allergy, Mild, Hives, 11/09/14) Family History: Family History: HTN Current Medications: Current Medications Current Medications Dexamethasone Sodium Phosphate (Decadron) 6 mg 1X ONCE IVP Last administered on 08/20/21at 12:09; Start 08/20/21 at 11:30; Stop 08/20/21 at 11:31; Status DC Fentanyl Citrate (Fentanyl 2ml Vial) 50 mcg 1X ONCE IVP Last administered on 1/30/22at 12:10; Start 08/20/21 at 11:30; Stop 08/20/21 at 11:31; Status DC Ondansetron HCl (Zofran) 4 mg 1X ONCE IVP Last administered on 08/20/21at 12:14; Start 08/20/21 at 12:15; Stop 08/20/21 at 12:16; Status DC Ondansetron HCl (Zofran) 4 mg STK-MED ONCE .ROUTE ; Start 08/20/21 at 12:13; Stop 08/20/21 at 12:13; Status DC Potassium Chloride (Klor-Con) 20 meq 1X ONCE PO ; Start 08/20/21 at 13:30; Stop 08/20/21 at 13:31; Status DC Potassium Chloride/Water 100 ml @ 100 mls/hr Q1H IV ; Start 08/20/21 at 14:00; Stop 08/20/21 at 15:59 Diphenhydramine HCl (Benadryl) 25 mg 1X ONCE IVP ; Start 08/20/21 at 13:45; Stop 08/20/21 at 13:46; Status DC Famotidine (Pepcid Vial) 20 mg 1X ONCE IVP ; Start 08/20/21 at 13:45; Stop 08/20/21 at 13:46; Status DC Active Scripts Active Metoprolol Succinate 50 Mg Tab.er.24h 50 Mg PO DAILY Klonopin (Clonazepam) 0.5 Mg Tablet 0.25 Mg PO PRN Q6HRS PRN Protonix (Pantoprazole Sodium) 40 Mg Tablet 40 Mg PO DAILYAC Reported Baclofen 10 Mg Tablet 10 Mg PO TID Gabapentin 300 Mg Capsule 300 Mg PO BID Warfarin Sodium 3 Mg Tablet 1 Tab PO DAILY Hydrocodone-Apap 10-325 (Hydrocodone Bit/Acetaminophen) 1 Each Tablet 1 Tab PO PRN Q4HRS PRN Metformin Hcl 500 Mg Tablet 500 Mg PO BIDWMEALS Temazepam 30 Mg Capsule 1 Cap PO QHS Sucralfate 1 Gm Tablet 1 Tab PO TIDWMEALHC Bentyl (Dicyclomine Hcl) 10 Mg Capsule 1 Cap PO TID Flonase (Fluticasone Propionate) 16 Gm [place].susp 2 [place] NS DAILY Paroxetine Hcl 20 Mg Tablet 1 Tab PO DAILY Nortriptyline Hcl 50 Mg Capsule 50 Mg PO HS ROS: Review of Systems Review of System Unless noted in HPI 14 point review systems was negative Physical Exam: Vital Signs: Vital Signs Date Time Temp Pulse Resp B/P (MAP) Pulse Ox O2 Delivery O2 Flow Rate FiO2 08/20/21 11:16 99.4 82 16 151/79 (103) 88 Room Air 99.4 Physcial Exam: GEN: mild distress HEENT: Normal cephalic, atraumatic, external auditory canals are patent EYES: Extraocular muscles are intact, pupil are equally round and reactive to light and accommodation MUSCULOSKELETAL: Well developed , well nourished, good range of motion ENDOCRINE: No thyromegaly was palpated LYMPHATICS: No cervical chain or axillary nodes were noted HEMATOPOIETIC: No bruising NECK: Supple, no JVD, no thyromegaly was noted LUNGS: decreased throughout, on nasal cannula HEART: RRR, S1, S2 present. Peripheral pulses intact, no obvious murmurs noted ABDOMEN: Soft, nontender. Positive bowel sounds, no organomegaly, normal bowel sounds EXTREMITIES: lower extremity edema NEUROLOGIC: Normal speech and tone. A&O x 3, moves all extremities, no obvious focal deficits PSYCHIATRIC: Normal affect, normal mood. Stable SKIN: No ulcerations or rashes, good skin turgor, no jaundice VASCULAR: Good capillary refill, neurovascular bundle appears to be intact Labs: Labs: Laboratory Tests Test 08/20/21 12:40 White Blood Count 6.7 x10^3/uL (4.0-11.0) Red Blood Count 5.15 x10^6/uL (3.50-5.40) Hemoglobin 13.4 g/dL (12.0-15.5) Hematocrit 43.4 % (36.0-47.0) Mean Corpuscular Volume 84 fL (79-100) Mean Corpuscular Hemoglobin 26 pg (25-35) Mean Corpuscular Hemoglobin Concent 31 g/dL (31-37) Red Cell Distribution Width 15.5 % (11.5-14.5) Platelet Count 213 x10^3/uL (140-400) Neutrophils (%) (Auto) 71 % (31-73) Lymphocytes (%) (Auto) 22 % (24-48) Monocytes (%) (Auto) 7 % (0-9) Eosinophils (%) (Auto) 0 % (0-3) Basophils (%) (Auto) 1 % (0-3) Neutrophils # (Auto) 4.7 x10^3/uL (1.8-7.7) Lymphocytes # (Auto) 1.5 x10^3/uL (1.0-4.8) Monocytes # (Auto) 0.5 x10^3/uL (0.0-1.1) Eosinophils # (Auto) 0.0 x10^3/uL (0.0-0.7) Basophils # (Auto) 0.0 x10^3/uL (0.0-0.2) Sodium Level 140 mmol/L (136-145) Potassium Level 2.9 mmol/L (3.5-5.1) Chloride Level 103 mmol/L (98-107) Carbon Dioxide Level 27 mmol/L (21-32) Anion Gap 10 (6-14) Blood Urea Nitrogen 20 mg/dL (7-20) Creatinine 1.0 mg/dL (0.6-1.0) Estimated GFR (Cockcroft-Gault) 56.2 BUN/Creatinine Ratio 20 (6-20) Glucose Level 134 mg/dL (70-99) Calcium Level 8.4 mg/dL (8.5-10.1) Magnesium Level 1.7 mg/dL (1.8-2.4) Total Bilirubin 0.3 mg/dL (0.2-1.0) Aspartate Amino Transf (AST/SGOT) 47 U/L (15-37) Alanine Aminotransferase (ALT/SGPT) 33 U/L (14-59) Alkaline Phosphatase 76 U/L (46-116) Troponin I High Sensitivity 17 ng/L (4-50) GA-Tfa-D-Type Natriuretic Peptide 170 pg/mL (0-124) Total Protein 7.9 g/dL (6.4-8.2) Albumin 3.3 g/dL (3.4-5.0) Albumin/Globulin Ratio 0.7 (1.0-1.7) Laboratory Tests Test 08/20/21 12:40 White Blood Count 6.7 x10^3/uL (4.0-11.0) Red Blood Count 5.15 x10^6/uL (3.50-5.40) Hemoglobin 13.4 g/dL (12.0-15.5) Hematocrit 43.4 % (36.0-47.0) Mean Corpuscular Volume 84 fL (79-100) Mean Corpuscular Hemoglobin 26 pg (25-35) Mean Corpuscular Hemoglobin Concent 31 g/dL (31-37) Red Cell Distribution Width 15.5 % (11.5-14.5) Platelet Count 213 x10^3/uL (140-400) Neutrophils (%) (Auto) 71 % (31-73) Lymphocytes (%) (Auto) 22 % (24-48) Monocytes (%) (Auto) 7 % (0-9) Eosinophils (%) (Auto) 0 % (0-3) Basophils (%) (Auto) 1 % (0-3) Neutrophils # (Auto) 4.7 x10^3/uL (1.8-7.7) Lymphocytes # (Auto) 1.5 x10^3/uL (1.0-4.8) Monocytes # (Auto) 0.5 x10^3/uL (0.0-1.1) Eosinophils # (Auto) 0.0 x10^3/uL (0.0-0.7) Basophils # (Auto) 0.0 x10^3/uL (0.0-0.2) Sodium Level 140 mmol/L (136-145) Potassium Level 2.9 mmol/L (3.5-5.1) Chloride Level 103 mmol/L (98-107) Carbon Dioxide Level 27 mmol/L (21-32) Anion Gap 10 (6-14) Blood Urea Nitrogen 20 mg/dL (7-20) Creatinine 1.0 mg/dL (0.6-1.0) Estimated GFR (Cockcroft-Gault) 56.2 BUN/Creatinine Ratio 20 (6-20) Glucose Level 134 mg/dL (70-99) Calcium Level 8.4 mg/dL (8.5-10.1) Magnesium Level 1.7 mg/dL (1.8-2.4) Total Bilirubin 0.3 mg/dL (0.2-1.0) Aspartate Amino Transf (AST/SGOT) 47 U/L (15-37) Alanine Aminotransferase (ALT/SGPT) 33 U/L (14-59) Alkaline Phosphatase 76 U/L (46-116) Troponin I High Sensitivity 17 ng/L (4-50) GS-Lrl-U-Type Natriuretic Peptide 170 pg/mL (0-124) Total Protein 7.9 g/dL (6.4-8.2) Albumin 3.3 g/dL (3.4-5.0) Albumin/Globulin Ratio 0.7 (1.0-1.7) Assessment/Plan Assessment/Plan Acute hypoxic respiratory failure secondary to COVID-19 pneumonia possible bacterial pneumonia gram-negative gram-positive possible PE history A. fib CAD hypertension -Presented to ED worsening shortness of breath Covid positive about a week ago but been having symptoms for around the 10-day jennifer -Start dexamethasone. She is right on the borderline for remdesivir criteria sh ould she worsen will add this on -Handful antibiotic allergies that are unspecified we will just go ahead and do Levaquin -With the pleuritic type chest pain CT PE ordered. Patient does have history of A. fib on home warfarin INR is around 6 suspect PE less likely will still check. -Hold warfarin. Warfarin per pharmacy -Warfarin also serve as DVT prophylaxis -Diet as tolerated -Home meds resumed as indicated Justifications for Admission Other Justification ROCKY WILCOX MD Aug 20, 2021 13:48
[2021-08-20] MEDS ORDERED: ACETAMINOPHEN 325 MG TABLET. PO PRN (14:00)
[2021-08-20] MEDS ORDERED: CALCIUM CARBONATE 500 MG TAB.CHEW PO PRN (14:00)
[2021-08-20] MEDS ORDERED: IOHEXOL 350 MG/ML 100 ML VIAL. IV ONE (14:00)
[2021-08-20] MEDS ORDERED: ONDANSETRON PF 4 MG/2 ML VIAL. IVP PRN (14:00)
[2021-08-20] MEDS ORDERED: MAGNESIUM SULFATE 2GM 50 ML IV ONE (14:00)
[2021-08-20] MEDS ORDERED: ELECTROLYTE (NON-ICU) PROTOCOL. MC PRN (14:00)
[2021-08-20] MEDS ORDERED: CONTRAST GIVEN. MC PRN (14:15)
[2021-08-20] MEDS: diphenhydrAMINE 50 MG/ML VIAL IVP ONE ×2 (14:24→14:57)
[2021-08-20] MEDS: clonazePAM 0.5 MG TABLET PO PRN ×2 (14:25→21:43)
[2021-08-20] MEDS: DEXAMETHASONE SOD PHOS 4 MG/ML VIAL IVP SCH (14:30)
[2021-08-20 14:32] LABS: PROTHROMBIN TIME PATIENT 50.3 SEC (11.7-14.0)
--- NOTE | 2021-08-20 15:41 | EKG ---
[facility] [address] [place] [address] Test Date: 2021-08-20 Test Time: 11:20:54 Pat Name: NICO ADRIAN Department: Room: ED HOLD 21 Gender: F Telecommunications Repairer: : 1960 Requested By: MRAILYN MOORE Order Number: [id number] Reading MD: Juvencio Kuo Measurements Intervals [place] Rate: 81 P: 6 TX: 128 QRS: 27 QRSD: 120 T: 238 QT: 450 QTc: 523 Interpretive Statements SINUS RHYTHM LEFT ATRIAL ABNORMALITY T WAVE DEPRESSION IN THE ANTERIOR LATERAL LEADS CONSIDER ISCHEMIA Electronically Signed On 08-22-2021 13:00:44 MEAL ATTENDANT by Juvencio Kuo
[2021-08-20] MEDS: PANTOPRAZOLE 40 MG TABLET.DR. PO SCH (17:17)
[2021-08-20] MEDS: DOXYCYCLINE HYCLATE 100 MG TABLET PO SCH ×2 (17:17→21:41)
[2021-08-20] MEDS: METOPROLOL SUCC 24HR ER 50 MG TAB.ER.24H. PO SCH (17:17)
[2021-08-20] MEDS: PARoxetine 20 MG TABLET PO SCH (17:18)
[2021-08-20] MEDS ORDERED: AMPICILLIN/SULBACTAM 3 GM in IV NORMAL SALINE 100ML 100 ML IV SCH (18:00)
[2021-08-20] MEDS: SENNOSIDES/DOCUSATE 8.6/50MG TABLET. PO SCH (19:24)
[2021-08-20] MEDS: DICYCLOMINE HCL 10 MG CAPSULE PO SCH ×2 (19:25→21:00)
[2021-08-20] MEDS: SUCRALFATE 1 GM TABLET. PO SCH ×2 (19:25→21:00)
[2021-08-20] MEDS: POTASSIUM CHLORIDE 10MEQ 100 ML IV SCH ×2 (19:26→21:57)
[2021-08-20] MEDS: GABAPENTIN 300 MG CAPSULE. PO SCH (21:41)
[2021-08-20] MEDS: oxyCODONE/APAP 5/325 1 TAB TABLET PO PRN (21:56)
[2021-08-20] MEDS: NORTRIPTYLINE 25 MG CAPSULE PO SCH (21:56)
[2021-08-20 23:00] VITALS: BP 134/65
[2021-08-21] VITALS (7 sets, daily range): BP systolic 119–149; BP diastolic 57–82
[2021-08-21 06:58] LABS: PROTHROMBIN TIME PATIENT 48.1 SEC (11.7-14.0)
--- NOTE | 2021-08-21 06:58 | PDOC ---
[facility] PROGRESS NOTE Date of Service DOS: DATE: 08/21/21 TIME: 06:52 Chief Complaint Chief Complaint A/P: Acute hypoxic respiratory failure - secondary to COVID-19 pneumonia possible bacterial pneumonia gram-negative gram-positive Parosysmal A. fib - cont warfarin. currently with supratherapeutic INR likely due to poor appetite CAD - cont home meds Hypertension - cont home meds Hypokalemia - replace, monitor History of Present Illness History of Present Illness Ms Sullivan is 61-year-old female w/ PMHx CAD, Afib who presented to the emergency room 08/20/21 via EMS for worsening shortness of breath. Diagnosed with Covid a week ago but have been feeling symptoms for several days with more than. is actually admitted with Covid right now. Only has received 1 Covid vaccine on 08/04/21. Already worsening cough congestion sore throat fevers. Patient also reporting pleuritic type chest pain especially with exertion. Checking a CT scan in emergency room. She does have A. fib on home warfarin and INR is around 6. In the emergency room required to be placed on 2 2 L nasal cannula. No home O2. Labs with WBC 6.7, Hb 13.4, platelets 213, INR 5.8, NA 140, K2.9, BUN 20, CR 1, calcium 8.4, magnesium 1.7, AST 47, ALT 33, alk phos 76, albumin 3.3, NT proBNP 170, high-sensitivity troponin is 17 Chest radiograph with multifocal pneumonia cardiomegaly and prior sternotomy EKG sinus rhythm with rate 81 bpm meets criteria for LVH TWI in I, V2 through V6. No ST segment elevation Admitted for further care. 08/21: Seen bedside, still hypoxic requiring 4L/min NCO2 to maintain saturations 94%. No CP, still short of breath, no appetite at all. Vitals/I&O Vitals/I&O: Vital Signs Date Time Temp Pulse Resp B/P (MAP) Pulse Ox O2 Delivery O2 Flow Rate FiO2 08/21/21 04:17 98.0 98.0 08/21/21 03:00 68 19 122/63 (82) 91 Nasal Cannula 08/20/21 20:00 2.0 I & O 08/20/21 08/20/21 08/21/21 15:00 23:00 07:00 Intake Total 440 ml Balance 440 ml Physical Exam General: Alert, Oriented X3, Cooperative Heart: Regular rate, Normal S1, Normal S2 Lungs: Crackles Abdomen: Normal bowel sounds, Soft Extremities: No clubbing, No cyanosis Skin: No rashes, No breakdown Labs Labs: Laboratory Tests Test 08/20/21 12:40 White Blood Count 6.7 x10^3/uL (4.0-11.0) Red Blood Count 5.15 x10^6/uL (3.50-5.40) Hemoglobin 13.4 g/dL (12.0-15.5) Hematocrit 43.4 % (36.0-47.0) Mean Corpuscular Volume 84 fL (79-100) Mean Corpuscular Hemoglobin 26 pg (25-35) Mean Corpuscular Hemoglobin Concent 31 g/dL (31-37) Red Cell Distribution Width 15.5 % (11.5-14.5) Platelet Count 213 x10^3/uL (140-400) Neutrophils (%) (Auto) 71 % (31-73) Lymphocytes (%) (Auto) 22 % (24-48) Monocytes (%) (Auto) 7 % (0-9) Eosinophils (%) (Auto) 0 % (0-3) Basophils (%) (Auto) 1 % (0-3) Neutrophils # (Auto) 4.7 x10^3/uL (1.8-7.7) Lymphocytes # (Auto) 1.5 x10^3/uL (1.0-4.8) Monocytes # (Auto) 0.5 x10^3/uL (0.0-1.1) Eosinophils # (Auto) 0.0 x10^3/uL (0.0-0.7) Basophils # (Auto) 0.0 x10^3/uL (0.0-0.2) Prothrombin Time 50.3 SEC (11.7-14.0) Prothromb Time International Ratio 5.8 (0.8-1.1) Sodium Level 140 mmol/L (136-145) Potassium Level 2.9 mmol/L (3.5-5.1) Chloride Level 103 mmol/L (98-107) Carbon Dioxide Level 27 mmol/L (21-32) Anion Gap 10 (6-14) Blood Urea Nitrogen 20 mg/dL (7-20) Creatinine 1.0 mg/dL (0.6-1.0) Estimated GFR (Cockcroft-Gault) 56.2 BUN/Creatinine Ratio 20 (6-20) Glucose Level 134 mg/dL (70-99) Calcium Level 8.4 mg/dL (8.5-10.1) Magnesium Level 1.7 mg/dL (1.8-2.4) Total Bilirubin 0.3 mg/dL (0.2-1.0) Aspartate Amino Transf (AST/SGOT) 47 U/L (15-37) Alanine Aminotransferase (ALT/SGPT) 33 U/L (14-59) Alkaline Phosphatase 76 U/L (46-116) Troponin I High Sensitivity 17 ng/L (4-50) KZ-Ccj-S-Type Natriuretic Peptide 170 pg/mL (0-124) Total Protein 7.9 g/dL (6.4-8.2) Albumin 3.3 g/dL (3.4-5.0) Albumin/Globulin Ratio 0.7 (1.0-1.7) Assessment and Plan Assessmemt and Plan Problems Medical Problems: (1) COVID-19 Status: Acute (2) Respiratory failure with hypoxia Status: Acute Comment Review of Relevant I have reviewed the following items jennifer (where applicable) has been applied. Medications: Current Medications Medications (Trade) Dose Ordered Sig/Kayla Route PRN Reason Start Time Stop Time Status Last Admin Dose Admin Dexamethasone Sodium Phosphate (Decadron) 6 mg 1X ONCE IVP 08/20/21 11:30 08/20/21 11:31 DC 08/20/21 12:09 Fentanyl Citrate (Fentanyl 2ml Vial) 50 mcg 1X ONCE IVP 08/20/21 11:30 08/20/21 11:31 DC 08/20/21 12:10 Ondansetron HCl (Zofran) 4 mg 1X ONCE IVP 08/20/21 12:15 08/20/21 12:16 DC 08/20/21 12:14 Potassium Chloride (Klor-Con) 20 meq 1X ONCE PO 08/20/21 13:30 08/20/21 13:31 DC 08/20/21 15:05 Potassium Chloride/Water 100 ml @ 100 mls/hr Q1H IV 08/20/21 14:00 08/20/21 15:59 DC 08/20/21 21:57 Magnesium Sulfate 50 ml @ 25 mls/hr 1X ONCE IV 08/20/21 14:00 08/20/21 15:59 DC 08/20/21 15:05 Clonazepam (KlonoPIN) 0.25 mg PRN Q6HRS PRN PO ANXIETY / AGITATION 08/20/21 14:00 08/20/21 21:43 Dicyclomine HCl (Bentyl) 10 mg TID PO 08/20/21 14:00 08/20/21 19:25 Gabapentin (Neurontin) 300 mg BID PO 08/20/21 21:00 08/20/21 21:41 Metoprolol Succinate (Toprol Xl) 50 mg DAILY PO 08/20/21 14:00 08/20/21 17:17 Pantoprazole Sodium (Protonix) 40 mg DAILYAC PO 08/20/21 14:00 08/20/21 17:17 Paroxetine HCl (Paxil) 20 mg DAILY PO 08/20/21 14:00 08/20/21 17:18 Sucralfate (Carafate) 1 gm TIDWMEALHC PO 08/20/21 17:00 08/20/21 19:25 Nortriptyline HCl (Pamelor) 50 mg QHS PO 08/20/21 21:00 08/20/21 21:56 Doxycycline Hyclate (Vibra-Tab) 100 mg BID PO 08/20/21 14:30 08/20/21 21:41 Ondansetron HCl (Zofran) 4 mg PRN Q6HRS PRN IVP NAUSEA/VOMITING 08/20/21 14:00 08/20/21 20:10 Oxycodone/ Acetaminophen (Percocet 5/325) 1 tab PRN Q4HRS PRN PO MILD PAIN, 1ST CHOICE 08/20/21 14:00 08/20/21 21:56 Levofloxacin/ Dextrose 100 ml @ 100 mls/hr Q24H IV 08/20/21 15:00 08/20/21 17:19 Justifications for Admission Other Justification ROCKY APONTE MD Aug 21, 2021 06:58
[2021-08-21] MEDS ORDERED: fentaNYL PF VIAL 100 MCG/2 ML VIAL IVP PRN (07:00)
[2021-08-21] MEDS ORDERED: guaiFENesin DM 200MG/20MG 10 ML SYRUP PO PRN (07:00)
[2021-08-21] MEDS: FLUTICASONE 50MCG/NASAL SPRAY 16GM BOTTLE. NS SCH (09:00)
[2021-08-21] MEDS ORDERED: WARFARIN 3 MG TABLET. PO SCH (09:00)
[2021-08-21] MEDS: SUCRALFATE 1 GM TABLET. PO SCH ×4 (09:20→19:59)
[2021-08-21] MEDS: SENNOSIDES/DOCUSATE 8.6/50MG TABLET. PO SCH ×2 (09:20→19:59)
[2021-08-21] MEDS: GABAPENTIN 300 MG CAPSULE. PO SCH ×2 (09:20→19:59)
[2021-08-21] MEDS: DICYCLOMINE HCL 10 MG CAPSULE PO SCH ×3 (09:21→19:58)
[2021-08-21] MEDS: PARoxetine 20 MG TABLET PO SCH (09:21)
[2021-08-21] MEDS: METOPROLOL SUCC 24HR ER 50 MG TAB.ER.24H. PO SCH (09:22)
[2021-08-21] MEDS: DOXYCYCLINE HYCLATE 100 MG TABLET PO SCH ×2 (09:22→19:59)
[2021-08-21] MEDS: PANTOPRAZOLE 40 MG TABLET.DR. PO SCH (09:24)
[2021-08-21] MEDS: POTASSIUM CL 20MEQ D5-0.45NACL 1,000 ML IV SCH (09:24)
[2021-08-21] MEDS: DEXAMETHASONE SOD PHOS 4 MG/ML VIAL IVP SCH (09:25)
[2021-08-21 10:26] LABS: ALBUMIN 2.9 g/dL (3.4-5.0); ALBUMIN/GLOBULIN RATIO 0.8 (1.0-1.7); CALCIUM 7.6 mg/dL (8.5-10.1); CREATININE 0.7 mg/dL (0.6-1.0); GFR 84.8; POTASSIUM 3.1 mmol/L (3.5-5.1); TOTAL BILIRUBIN 0.3 mg/dL (0.2-1.0); TOTAL PROTEIN 6.5 g/dL (6.4-8.2)
[2021-08-21] MEDS ORDERED: POTASSIUM CHLORIDE 20 MEQ TABLET.ER. PO ONE (14:30)
[2021-08-21] MEDS ORDERED: DEXTROSE 50% 25 GM / 50ML DISP.SYRIN. IV PRN (14:30)
[2021-08-21] MEDS: INSULIN LISPRO 300 UNITS/3 ML VIAL. SQ SCH (17:13)
[2021-08-21] MEDS: LACTOBACILLUS RHAMNOSUS GG 1 CAPSULE. PO SCH (19:58)
[2021-08-21] MEDS: oxyCODONE/APAP 5/325 1 TAB TABLET PO PRN (19:59)
[2021-08-21] MEDS: NORTRIPTYLINE 25 MG CAPSULE PO SCH (20:01)
[2021-08-22 03:13] VITALS: BP 122/56
[2021-08-22 07:00] VITALS: BP 143/74
[2021-08-22] MEDS: INSULIN LISPRO 300 UNITS/3 ML VIAL. SQ SCH ×3 (07:59→17:01)
[2021-08-22] MEDS: PANTOPRAZOLE 40 MG TABLET.DR. PO SCH (08:00)
[2021-08-22] MEDS: SUCRALFATE 1 GM TABLET. PO SCH ×4 (08:00→20:32)
[2021-08-22 08:04] LABS: HEMATOCRIT 37.4 % (36.0-47.0); HEMOGLOBIN 11.6 g/dL (12.0-15.5); RED BLOOD COUNT 4.4 x10^6/uL (3.50-5.40); RED CELL DISTRIBUTION WIDTH 16.1 % (11.5-14.5); WHITE BLOOD COUNT 3.6 x10^3/uL (4.0-11.0)
[2021-08-22 08:26] LABS: PROTHROMBIN TIME PATIENT 36.9 SEC (11.7-14.0)
[2021-08-22] MEDS: DICYCLOMINE HCL 10 MG CAPSULE PO SCH ×3 (08:36→20:32)
[2021-08-22] MEDS: DOXYCYCLINE HYCLATE 100 MG TABLET PO SCH ×2 (08:36→20:32)
[2021-08-22] MEDS: PARoxetine 20 MG TABLET PO SCH (08:36)
[2021-08-22] MEDS: LACTOBACILLUS RHAMNOSUS GG 1 CAPSULE. PO SCH ×2 (08:36→20:32)
[2021-08-22] MEDS: SENNOSIDES/DOCUSATE 8.6/50MG TABLET. PO SCH ×2 (08:36→20:32)
[2021-08-22] MEDS: METOPROLOL SUCC 24HR ER 50 MG TAB.ER.24H. PO SCH (08:37)
[2021-08-22] MEDS: FLUTICASONE 50MCG/NASAL SPRAY 16GM BOTTLE. NS SCH (08:37)
[2021-08-22] MEDS: GABAPENTIN 300 MG CAPSULE. PO SCH ×2 (08:37→20:32)
[2021-08-22 09:00] LABS: ALBUMIN 2.8 g/dL (3.4-5.0); ALBUMIN/GLOBULIN RATIO 0.8 (1.0-1.7); CALCIUM 7.8 mg/dL (8.5-10.1); CREATININE 0.6 mg/dL (0.6-1.0); GFR 101.3; POTASSIUM 3.3 mmol/L (3.5-5.1); TOTAL BILIRUBIN 0.3 mg/dL (0.2-1.0); TOTAL PROTEIN 6.4 g/dL (6.4-8.2)
[2021-08-22] MEDS: DEXAMETHASONE SOD PHOS 4 MG/ML VIAL IVP SCH (09:36)
[2021-08-22 11:00] VITALS: BP 113/66
[2021-08-22] MEDS: POTASSIUM CL 20MEQ D5-0.45NACL 1,000 ML IV SCH (11:33)
--- NOTE | 2021-08-22 11:43 | NUR ---
Pharmacy Warfarin Dosing Note S:Pharmacy consulted to assist with anticoagulation therapy started with target INR: 2 -3 O:NICO ADRIAN is a 61 year old F with Atrial Fibrillation LABS: Last INR: 3.8 Last HGB: 11.6 Last HCT: 37.4 Last PLT: 216 Last dose held Vitamin K given: N Drug Interaction Changes: New Interacting Drug Ongoing Drug Interactions: levaquin A:INR of 3.8 is above desired range. Target range for this patient is: 2 -3 P: Warfarin dose: Hold today Bridge Therapy: None Next INR due 08/23/21 Pharmacy anticoagulation service will continue to follow. ANAMARIA RODRIGUEZ RPH, 08/22/21 1149
--- NOTE | 2021-08-22 13:09 | PDOC ---
[employer] PROGRESS NOTE Date of Service DOS: DATE: 08/22/21 TIME: 13:08 Chief Complaint Chief Complaint A/P: Acute hypoxic respiratory failure - secondary to COVID-19 pneumonia possible bacterial pneumonia gram-negative gram-positive Parosysmal A. fib - cont warfarin. currently with supratherapeutic INR likely due to poor appetite CAD - cont home meds Hypertension - cont home meds Hypokalemia - replace, monitor History of Present Illness History of Present Illness Ms Sullivan is 61-year-old female w/ PMHx CAD, Afib who presented to the emergency room 08/20/21 via EMS for worsening shortness of breath. Diagnosed with Covid a week ago but have been feeling symptoms for several days with more than. is actually admitted with Covid right now. Only has received 1 Covid vaccine on 08/04/21. Already worsening cough congestion sore throat fevers. Patient also reporting pleuritic type chest pain especially with exertion. Checking a CT scan in emergency room. She does have A. fib on home warfarin and INR is around 6. In the emergency room required to be placed on 2 2 L nasal cannula. No home O2. Labs with WBC 6.7, Hb 13.4, platelets 213, INR 5.8, NA 140, K2.9, BUN 20, CR 1, calcium 8.4, magnesium 1.7, AST 47, ALT 33, alk phos 76, albumin 3.3, NT proBNP 170, high-sensitivity troponin is 17 Chest radiograph with multifocal pneumonia cardiomegaly and prior sternotomy EKG sinus rhythm with rate 81 bpm meets criteria for LVH TWI in I, V2 through V6. No ST segment elevation Admitted for further care. 08/21: Seen bedside, still hypoxic requiring 4L/min NCO2 to maintain saturations 94%. No CP, still short of breath, no appetite at all. 08/22/2021 No acute events overnight. Patient seen examined bedside. Saturating 94% on 4 L nasal cannula. Not dyspneic upon my encounter. Dyspnea upon exertion. Patient's chart, labs, images were reviewed and discussed with RN Vitals/I&O Vitals/I&O: Vital Signs Date Time Temp Pulse Resp B/P (MAP) Pulse Ox O2 Delivery O2 Flow Rate FiO2 08/22/21 11:00 98.0 72 18 113/66 (82) 93 Nasal Cannula 4.0 98.0 I & O 08/21/21 08/21/21 08/22/21 15:00 23:00 07:00 Intake Total 240 ml 220 ml Balance 240 ml 220 ml Physical Exam General: Alert, Oriented X3, Cooperative Heart: Regular rate, Normal S1, Normal S2 Lungs: Crackles Abdomen: Normal bowel sounds, Soft Extremities: No clubbing, No cyanosis Skin: No rashes, No breakdown Labs Labs: Laboratory Tests Test 08/21/21 17:08 08/21/21 19:20 08/22/21 06:25 08/22/21 07:27 Glucose (Fingerstick) 224 mg/dL (70-99) 220 mg/dL (70-99) 116 mg/dL (70-99) White Blood Count 3.6 x10^3/uL (4.0-11.0) Red Blood Count 4.40 x10^6/uL (3.50-5.40) Hemoglobin 11.6 g/dL (12.0-15.5) Hematocrit 37.4 % (36.0-47.0) Mean Corpuscular Volume 85 fL (79-100) Mean Corpuscular Hemoglobin 26 pg (25-35) Mean Corpuscular Hemoglobin Concent 31 g/dL (31-37) Red Cell Distribution Width 16.1 % (11.5-14.5) Platelet Count 216 x10^3/uL (140-400) Prothrombin Time 36.9 SEC (11.7-14.0) Prothromb Time International Ratio 3.8 (0.8-1.1) Sodium Level 143 mmol/L (136-145) Potassium Level 3.3 mmol/L (3.5-5.1) Chloride Level 105 mmol/L (98-107) Carbon Dioxide Level 28 mmol/L (21-32) Anion Gap 10 (6-14) Blood Urea Nitrogen 12 mg/dL (7-20) Creatinine 0.6 mg/dL (0.6-1.0) Estimated GFR (Cockcroft-Gault) 101.3 BUN/Creatinine Ratio 20 (6-20) Glucose Level 125 mg/dL (70-99) Calcium Level 7.8 mg/dL (8.5-10.1) Total Bilirubin 0.3 mg/dL (0.2-1.0) Aspartate Amino Transf (AST/SGOT) 34 U/L (15-37) Alanine Aminotransferase (ALT/SGPT) 32 U/L (14-59) Alkaline Phosphatase 65 U/L (46-116) Total Protein 6.4 g/dL (6.4-8.2) Albumin 2.8 g/dL (3.4-5.0) Albumin/Globulin Ratio 0.8 (1.0-1.7) Test 08/22/21 12:16 Glucose (Fingerstick) 188 mg/dL (70-99) Assessment and Plan Assessmemt and Plan Problems Medical Problems: (1) COVID-19 Status: Acute (2) Respiratory failure with hypoxia Status: Acute Comment Review of Relevant I have reviewed the following items jennifer (where applicable) has been applied. Medications: Current Medications Medications (Trade) Dose Ordered Sig/Kayla Route PRN Reason Start Time Stop Time Status Last Admin Dose Admin Lactobacillus Rhamnosus (Culturelle) 1 cap BID PO 08/21/21 21:00 08/22/21 08:36 Potassium Chloride (Klor-Con) 40 meq 1X ONCE PO 08/21/21 14:30 08/21/21 14:31 DC 08/21/21 14:44 Insulin Human Lispro (HumaLOG) 0-9 UNITS TIDWMEALS SQ 08/21/21 17:00 08/22/21 12:20 Justifications for Admission Other Justification JEANINE COWART MD Aug 22, 2021 13:09
--- NOTE | 2021-08-22 14:04 | NUR ---
SW following. Discussed with RN, pt from home with ( also admitted with COVID-19), 4L (does not use oxygen at home), ada diet, COVID-19 positive. RN advised no SW needs at this time. SW will continue to follow.
[2021-08-22] MEDS: oxyCODONE/APAP 5/325 1 TAB TABLET PO PRN ×2 (14:50→20:32)
[2021-08-22 15:00] VITALS: BP 133/52
[2021-08-22] MEDS ORDERED: POTASSIUM CHLORIDE 20 MEQ TABLET.ER. PO ONE (15:00)
[2021-08-22] MEDS ORDERED: metFORMIN 500 MG TABLET PO SCH (17:00)
[2021-08-22 19:00] VITALS: BP 142/50
[2021-08-22] MEDS: NORTRIPTYLINE 25 MG CAPSULE PO SCH (20:32)
[2021-08-22 23:00] VITALS: BP 132/60
[2021-08-23] MEDS: ZOLPIDEM 5 MG TABLET. PO PRN ×2 (00:25→21:17)
[2021-08-23 03:00] VITALS: BP 142/52
[2021-08-23 07:00] VITALS: BP 138/65
[2021-08-23] MEDS: SUCRALFATE 1 GM TABLET. PO SCH ×4 (07:17→21:17)
[2021-08-23] MEDS: PANTOPRAZOLE 40 MG TABLET.DR. PO SCH (07:17)
[2021-08-23] MEDS: INSULIN LISPRO 300 UNITS/3 ML VIAL. SQ SCH ×3 (08:00→17:19)
[2021-08-23] MEDS: SENNOSIDES/DOCUSATE 8.6/50MG TABLET. PO SCH ×2 (08:15→21:17)
[2021-08-23] MEDS: GABAPENTIN 300 MG CAPSULE. PO SCH ×2 (08:15→21:17)
[2021-08-23] MEDS: LACTOBACILLUS RHAMNOSUS GG 1 CAPSULE. PO SCH ×2 (08:15→21:17)
[2021-08-23] MEDS: PARoxetine 20 MG TABLET PO SCH (08:15)
[2021-08-23] MEDS: DICYCLOMINE HCL 10 MG CAPSULE PO SCH ×3 (08:16→21:17)
[2021-08-23] MEDS: DEXAMETHASONE SOD PHOS 4 MG/ML VIAL IVP SCH (08:17)
[2021-08-23] MEDS: FLUTICASONE 50MCG/NASAL SPRAY 16GM BOTTLE. NS SCH (08:18)
[2021-08-23] MEDS: METOPROLOL SUCC 24HR ER 50 MG TAB.ER.24H. PO SCH (08:19)
[2021-08-23] MEDS: DOXYCYCLINE HYCLATE 100 MG TABLET PO SCH ×2 (08:34→21:17)
[2021-08-23 08:37] LABS: PROTHROMBIN TIME PATIENT 32.7 SEC (11.7-14.0)
[2021-08-23 08:47] LABS: ALBUMIN 2.7 g/dL (3.4-5.0); ALBUMIN/GLOBULIN RATIO 0.7 (1.0-1.7); CALCIUM 7.9 mg/dL (8.5-10.1); CREATININE 0.6 mg/dL (0.6-1.0); GFR 101.3; POTASSIUM 3.2 mmol/L (3.5-5.1); TOTAL BILIRUBIN 0.4 mg/dL (0.2-1.0); TOTAL PROTEIN 6.8 g/dL (6.4-8.2)
[2021-08-23 11:00] VITALS: BP 152/70
--- NOTE | 2021-08-23 11:15 | PDOC ---
[employer] [facility] PROGRESS NOTE Date of Service DOS: DATE: 08/23/21 TIME: 11:09 Chief Complaint Chief Complaint Acute hypoxic respiratory failure - secondary to COVID-19 pneumonia possible bacterial pneumonia gram-negative gram-positive Parosysmal A. fib - cont warfarin. currently with supratherapeutic INR likely due to poor appetite CAD - cont home meds Hypertension - cont home meds Hypokalemia - replace, monitor History of Present Illness History of Present Illness Ms Sullivan is 61-year-old female w/ PMHx CAD, Afib who presented to the emergency room 08/20/21 via EMS for worsening shortness of breath. Diagnosed with Covid a week ago but have been feeling symptoms for several days with more than. is actually admitted with Covid right now. Only has received 1 Covid vaccine on 08/04/21. Already worsening cough congestion sore throat fevers. Patient also reporting pleuritic type chest pain especially with exertion. Checking a CT scan in emergency room. She does have A. fib on home warfarin and INR is around 6. In the emergency room required to be placed on 2 2 L nasal cannula. No home O2. Labs with WBC 6.7, Hb 13.4, platelets 213, INR 5.8, NA 140, K2.9, BUN 20, CR 1, calcium 8.4, magnesium 1.7, AST 47, ALT 33, alk phos 76, albumin 3.3, NT proBNP 170, high-sensitivity troponin is 17 Chest radiograph with multifocal pneumonia cardiomegaly and prior sternotomy EKG sinus rhythm with rate 81 bpm meets criteria for LVH TWI in I, V2 through V6. No ST segment elevation Admitted for further care. 08/21: Seen bedside, still hypoxic requiring 4L/min NCO2 to maintain saturations 94%. No CP, still short of breath, no appetite at all. 08/22/2021 No acute events overnight. Patient seen examined bedside. Saturating 94% on 4 L nasal cannula. Not dyspneic upon my encounter. Dyspnea upon exertion. Patient's chart, labs, images were reviewed and discussed with RN 08/23/2021 Patient seen and examined. Patient is saturating 94% on 4 L nasal cannula. Patient has a cough. Chart Reviewed Discussed with RN Vitals/I&O Vitals/I&O: Vital Signs Date Time Temp Pulse Resp B/P (MAP) Pulse Ox O2 Delivery O2 Flow Rate FiO2 08/23/21 08:19 64 138/65 08/23/21 07:00 98.1 20 94 Nasal Cannula 4.0 98.1 I & O 08/22/21 08/22/21 08/23/21 15:00 23:00 07:00 Intake Total 50 ml 680 ml 300 ml Output Total 200 ml Balance 50 ml 680 ml 100 ml Physical Exam General: Alert, Oriented X3, Cooperative Heart: Regular rate, Normal S1, Normal S2 Lungs: Crackles Abdomen: Normal bowel sounds, Soft Extremities: No clubbing, No cyanosis Skin: No rashes, No breakdown Labs Labs: Laboratory Tests Test 08/22/21 12:16 08/22/21 16:48 08/22/21 20:53 08/23/21 06:45 Glucose (Fingerstick) 188 mg/dL (70-99) 198 mg/dL (70-99) 155 mg/dL (70-99) Prothrombin Time 32.7 SEC (11.7-14.0) Prothromb Time International Ratio 3.3 (0.8-1.1) Sodium Level 143 mmol/L (136-145) Potassium Level 3.2 mmol/L (3.5-5.1) Chloride Level 105 mmol/L (98-107) Carbon Dioxide Level 23 mmol/L (21-32) Anion Gap 15 (6-14) Blood Urea Nitrogen 10 mg/dL (7-20) Creatinine 0.6 mg/dL (0.6-1.0) Estimated GFR (Cockcroft-Gault) 101.3 BUN/Creatinine Ratio 17 (6-20) Glucose Level 154 mg/dL (70-99) Calcium Level 7.9 mg/dL (8.5-10.1) Total Bilirubin 0.4 mg/dL (0.2-1.0) Aspartate Amino Transf (AST/SGOT) 30 U/L (15-37) Alanine Aminotransferase (ALT/SGPT) 31 U/L (14-59) Alkaline Phosphatase 63 U/L (46-116) Total Protein 6.8 g/dL (6.4-8.2) Albumin 2.7 g/dL (3.4-5.0) Albumin/Globulin Ratio 0.7 (1.0-1.7) Test 08/23/21 07:37 Glucose (Fingerstick) 141 mg/dL (70-99) Assessment and Plan Assessmemt and Plan Assessment: Acute hypoxic respiratory failure - secondary to COVID-19 pneumonia possible bacterial pneumonia gram-negative gram-positive Parosysmal A. fib - cont warfarin. currently with supratherapeutic INR likely due to poor appetite CAD - cont home meds Hypertension - cont home meds Hypokalemia - replace, monitor Plan: Continue Covid Protocol: doxy, decadron, O2, antitussive Home Meds DVT prophylaxis Full code Encourage PO intake Discharge disposition pending Comment Review of Relevant I have reviewed the following items jennifer (where applicable) has been applied. Medications: Current Medications Medications (Trade) Dose Ordered Sig/Kayla Route PRN Reason Start Time Stop Time Status Last Admin Dose Admin Potassium Chloride (Klor-Con) 20 meq 1X ONCE PO 08/22/21 15:00 08/22/21 15:01 DC 08/22/21 14:43 Justifications for Admission Other Justification ROSMERY FLORES III DO Aug 23, 2021 11:15
--- NOTE | 2021-08-23 11:25 | NUR ---
Pharmacy Warfarin Dosing Note S:Pharmacy consulted to assist with anticoagulation therapy started with target INR: 2 -3 O:NICO ADRIAN is a 61 year old F with Atrial Fibrillation LABS: Last INR: 3.3 Last HGB: 11.6 Last HCT: 37.4 Last PLT: 216 Last dose of Hold given on 08/22/21 at 1700 Previous Regimen: Vitamin K given: N Drug Interaction Changes: New Interacting Drug Ongoing Drug Interactions: levaquin A:INR of 3.3 is above desired range. Target range for this patient is: 2 -3 P: Warfarin dose: Hold Today at 1600 Bridge Therapy: None Next INR due IN AM Pharmacy anticoagulation service will continue to follow. DEBRA FELICIANO, [facility], 08/23/21 1123
[2021-08-23] MEDS: oxyCODONE/APAP 5/325 1 TAB TABLET PO PRN ×2 (14:19→21:17)
[2021-08-23 15:00] VITALS: BP 120/69
[2021-08-23 19:00] VITALS: BP 163/76
[2021-08-23] MEDS: NORTRIPTYLINE 25 MG CAPSULE PO SCH (21:17)
[2021-08-23 23:10] VITALS: BP 112/62
[2021-08-24] VITALS (7 sets, daily range): BP systolic 143–180; BP diastolic 66–79
[2021-08-24] MEDS: INSULIN LISPRO 300 UNITS/3 ML VIAL. SQ SCH ×3 (08:00→17:44)
[2021-08-24 08:32] LABS: HEMATOCRIT 38.2 % (36.0-47.0); HEMOGLOBIN 12.4 g/dL (12.0-15.5); RED BLOOD COUNT 4.59 x10^6/uL (3.50-5.40); RED CELL DISTRIBUTION WIDTH 15.6 % (11.5-14.5)
[2021-08-24] MEDS: DOXYCYCLINE HYCLATE 100 MG TABLET PO SCH ×2 (08:36→21:13)
[2021-08-24] MEDS: SUCRALFATE 1 GM TABLET. PO SCH ×4 (08:36→21:13)
[2021-08-24] MEDS: PANTOPRAZOLE 40 MG TABLET.DR. PO SCH (08:36)
[2021-08-24] MEDS: DICYCLOMINE HCL 10 MG CAPSULE PO SCH ×3 (08:36→21:13)
[2021-08-24] MEDS: GABAPENTIN 300 MG CAPSULE. PO SCH ×2 (08:36→21:13)
[2021-08-24] MEDS: PARoxetine 20 MG TABLET PO SCH (08:36)
[2021-08-24] MEDS: SENNOSIDES/DOCUSATE 8.6/50MG TABLET. PO SCH ×2 (08:36→21:13)
[2021-08-24] MEDS: METOPROLOL SUCC 24HR ER 50 MG TAB.ER.24H. PO SCH (08:36)
[2021-08-24] MEDS: LACTOBACILLUS RHAMNOSUS GG 1 CAPSULE. PO SCH ×2 (08:36→21:13)
[2021-08-24] MEDS: DEXAMETHASONE SOD PHOS 4 MG/ML VIAL IVP SCH (08:37)
[2021-08-24] MEDS: FLUTICASONE 50MCG/NASAL SPRAY 16GM BOTTLE. NS SCH (08:37)
[2021-08-24 08:44] LABS: PROTHROMBIN TIME PATIENT 21.5 SEC (11.7-14.0)
[2021-08-24 09:08] LABS: ALBUMIN 2.9 g/dL (3.4-5.0); ALBUMIN/GLOBULIN RATIO 0.6 (1.0-1.7); CALCIUM 8.2 mg/dL (8.5-10.1); CREATININE 0.7 mg/dL (0.6-1.0); GFR 84.8; TOTAL BILIRUBIN 0.4 mg/dL (0.2-1.0); TOTAL PROTEIN 7.4 g/dL (6.4-8.2)
--- NOTE | 2021-08-24 11:45 | PDOC ---
[employer] PROGRESS NOTE Date of Service DOS: DATE: 08/24/21 TIME: 11:40 Chief Complaint Chief Complaint Acute hypoxic respiratory failure - secondary to COVID-19 pneumonia possible bacterial pneumonia gram-negative gram-positive Parosysmal A. fib - cont warfarin. currently with supratherapeutic INR likely due to poor appetite CAD - cont home meds Hypertension - cont home meds Hypokalemia - replace, monitor History of Present Illness History of Present Illness Ms Sullivan is 61-year-old female w/ PMHx CAD, Afib who presented to the emergency room 08/20/21 via EMS for worsening shortness of breath. Diagnosed with Covid a week ago but have been feeling symptoms for several days with more than. is actually admitted with Covid right now. Only has received 1 Covid vaccine on 08/04/21. Already worsening cough congestion sore throat fevers. Patient also reporting pleuritic type chest pain especially with exertion. Checking a CT scan in emergency room. She does have A. fib on home warfarin and INR is around 6. In the emergency room required to be placed on 2 2 L nasal cannula. No home O2. Labs with WBC 6.7, Hb 13.4, platelets 213, INR 5.8, NA 140, K2.9, BUN 20, CR 1, calcium 8.4, magnesium 1.7, AST 47, ALT 33, alk phos 76, albumin 3.3, NT proBNP 170, high-sensitivity troponin is 17 Chest radiograph with multifocal pneumonia cardiomegaly and prior sternotomy EKG sinus rhythm with rate 81 bpm meets criteria for LVH TWI in I, V2 through V6. No ST segment elevation Admitted for further care. 08/21: Seen bedside, still hypoxic requiring 4L/min NCO2 to maintain saturations 94%. No CP, still short of breath, no appetite at all. 08/22/2021 No acute events overnight. Patient seen examined bedside. Saturating 94% on 4 L nasal cannula. Not dyspneic upon my encounter. Dyspnea upon exertion. Patient's chart, labs, images were reviewed and discussed with RN 08/23/2021 Patient seen and examined. Patient is saturating 94% on 4 L nasal cannula. Patient has a cough. Chart Reviewed Discussed with RN 08/24/2021 Patient seen and examined. Patient is saturating 95% on 4L room air. Chart Reviewed Discussed with RN Vitals/I&O Vitals/I&O: Vital Signs Date Time Temp Pulse Resp B/P (MAP) Pulse Ox O2 Delivery O2 Flow Rate FiO2 08/24/21 08:36 73 154/73 08/24/21 07:00 97.9 16 90 Room Air 4.0 97.9 I & O 08/23/21 08/23/21 08/24/21 15:00 23:00 07:00 Intake Total 300 ml 750 ml Output Total 2 ml Balance 298 ml 750 ml Physical Exam General: Alert, Oriented X3, Cooperative Heart: Regular rate, Normal S1, Normal S2 Lungs: Crackles Abdomen: Normal bowel sounds, Soft Extremities: No clubbing, No cyanosis Skin: No rashes, No breakdown Labs Labs: Laboratory Tests Test 08/23/21 11:48 08/23/21 17:11 08/23/21 19:18 08/24/21 07:35 Glucose (Fingerstick) 198 mg/dL (70-99) 191 mg/dL (70-99) 176 mg/dL (70-99) 125 mg/dL (70-99) Test 08/24/21 07:50 08/24/21 11:38 White Blood Count 5.0 x10^3/uL (4.0-11.0) Red Blood Count 4.59 x10^6/uL (3.50-5.40) Hemoglobin 12.4 g/dL (12.0-15.5) Hematocrit 38.2 % (36.0-47.0) Mean Corpuscular Volume 83 fL (79-100) Mean Corpuscular Hemoglobin 27 pg (25-35) Mean Corpuscular Hemoglobin Concent 33 g/dL (31-37) Red Cell Distribution Width 15.6 % (11.5-14.5) Platelet Count 328 x10^3/uL (140-400) Prothrombin Time 21.5 SEC (11.7-14.0) Prothromb Time International Ratio 1.9 (0.8-1.1) Sodium Level 139 mmol/L (136-145) Potassium Level 3.0 mmol/L (3.5-5.1) Chloride Level 104 mmol/L (98-107) Carbon Dioxide Level 30 mmol/L (21-32) Anion Gap 5 (6-14) Blood Urea Nitrogen 13 mg/dL (7-20) Creatinine 0.7 mg/dL (0.6-1.0) Estimated GFR (Cockcroft-Gault) 84.8 BUN/Creatinine Ratio 19 (6-20) Glucose Level 130 mg/dL (70-99) Calcium Level 8.2 mg/dL (8.5-10.1) Total Bilirubin 0.4 mg/dL (0.2-1.0) Aspartate Amino Transf (AST/SGOT) 33 U/L (15-37) Alanine Aminotransferase (ALT/SGPT) 32 U/L (14-59) Alkaline Phosphatase 69 U/L (46-116) Total Protein 7.4 g/dL (6.4-8.2) Albumin 2.9 g/dL (3.4-5.0) Albumin/Globulin Ratio 0.6 (1.0-1.7) Glucose (Fingerstick) 188 mg/dL (70-99) Assessment and Plan Assessmemt and Plan Problems Medical Problems: (1) COVID-19 Status: Acute (2) Respiratory failure with hypoxia Status: Acute Assessment: Acute hypoxic respiratory failure - secondary to COVID-19 pneumonia Parosysmal A. fib CAD Hypertension Hypokalemia Plan: Continue Levo Titrate O2 down Replace potassium Trend Labs Home Meds Evaluate Emotions/ Safety Continue DVT prophylaxis Full code Encourage PO intake Hope to D/C soon with Home Health Comment Review of Relevant I have reviewed the following items jennifer (where applicable) has been applied. Medications: Current Medications Medications (Trade) Dose Ordered Sig/Kayla Route PRN Reason Start Time Stop Time Status Last Admin Dose Admin Warfarin Sodium (Coumadin - No Dose Today) 1 each 1X WARF ONCE 08/23/21 16:00 08/23/21 16:01 DC 08/23/21 16:00 Justifications for Admission Other Justification ROSMERY FLORES III DO Aug 24, 2021 11:45
[2021-08-24] MEDS ORDERED: POTASSIUM CHLORIDE 20 MEQ TABLET.ER. PO ONE (12:30)
[2021-08-24] MEDS ORDERED: WARFARIN 5 MG TABLET. PO ONE (16:00)
[2021-08-24] MEDS: NORTRIPTYLINE 25 MG CAPSULE PO SCH (21:13)
[2021-08-24] MEDS: oxyCODONE/APAP 5/325 1 TAB TABLET PO PRN (21:20)
[2021-08-24] MEDS: ZOLPIDEM 5 MG TABLET. PO PRN (21:21)
[2021-08-24] MEDS ORDERED: hydrALAZINE 20 MG/ML VIAL. IVP PRN (23:00)
[2021-08-25 03:07] VITALS: BP 152/71
[2021-08-25 07:00] VITALS: BP_SYST 131; BP_SYST 152; BP_DIAS 63; BP_DIAS 74
[2021-08-25 07:45] LABS: PROTHROMBIN TIME PATIENT 19.3 SEC (11.7-14.0)
[2021-08-25 07:47] LABS: ALBUMIN 2.8 g/dL (3.4-5.0); ALBUMIN/GLOBULIN RATIO 0.8 (1.0-1.7); CALCIUM 7.8 mg/dL (8.5-10.1); CREATININE 0.6 mg/dL (0.6-1.0); GFR 101.3; POTASSIUM 3.2 mmol/L (3.5-5.1); TOTAL BILIRUBIN 0.4 mg/dL (0.2-1.0); TOTAL PROTEIN 6.3 g/dL (6.4-8.2)
[2021-08-25] MEDS: INSULIN LISPRO 300 UNITS/3 ML VIAL. SQ SCH ×2 (08:00→12:41)
[2021-08-25] MEDS: DOXYCYCLINE HYCLATE 100 MG TABLET PO SCH (09:50)
[2021-08-25] MEDS: PANTOPRAZOLE 40 MG TABLET.DR. PO SCH (09:50)
[2021-08-25] MEDS: DEXAMETHASONE SOD PHOS 4 MG/ML VIAL IVP SCH (09:50)
[2021-08-25] MEDS: SUCRALFATE 1 GM TABLET. PO SCH ×2 (09:51→12:40)
[2021-08-25] MEDS: GABAPENTIN 300 MG CAPSULE. PO SCH (09:51)
[2021-08-25] MEDS: DICYCLOMINE HCL 10 MG CAPSULE PO SCH ×2 (09:51→14:59)
[2021-08-25] MEDS: SENNOSIDES/DOCUSATE 8.6/50MG TABLET. PO SCH (09:51)
[2021-08-25] MEDS: LACTOBACILLUS RHAMNOSUS GG 1 CAPSULE. PO SCH (09:51)
[2021-08-25] MEDS: METOPROLOL SUCC 24HR ER 50 MG TAB.ER.24H. PO SCH (09:51)
[2021-08-25] MEDS: PARoxetine 20 MG TABLET PO SCH (09:51)
[2021-08-25] MEDS: oxyCODONE/APAP 5/325 1 TAB TABLET PO PRN (09:52)
[2021-08-25] MEDS: FLUTICASONE 50MCG/NASAL SPRAY 16GM BOTTLE. NS SCH (09:54)
[2021-08-25 11:00] VITALS: BP 142/81
--- NOTE | 2021-08-25 11:15 | PDOC ---
[employer] [facility] PROGRESS NOTE Date of Service DOS: DATE: 08/25/21 TIME: 11:12 Chief Complaint Chief Complaint Acute hypoxic respiratory failure - secondary to COVID-19 pneumonia PMH: Parosysmal A. fib - cont warfarin CAD - cont home meds Hypertension - cont home meds Hypokalemia - replace, monitor History of Present Illness History of Present Illness Ms Sullivan is 61-year-old female w/ PMHx CAD, Afib who presented to the emergency room 08/20/21 via EMS for worsening shortness of breath. Diagnosed with Covid a week ago but have been feeling symptoms for several days with more than. is actually admitted with Covid right now. Only has received 1 Covid vaccine on 08/04/21. Already worsening cough congestion sore throat fevers. Patient also reporting pleuritic type chest pain especially with exertion. Checking a CT scan in emergency room. She does have A. fib on home warfarin and INR is around 6. In the emergency room required to be placed on 2 2 L nasal cannula. No home O2. Labs with WBC 6.7, Hb 13.4, platelets 213, INR 5.8, NA 140, K2.9, BUN 20, CR 1, calcium 8.4, magnesium 1.7, AST 47, ALT 33, alk phos 76, albumin 3.3, NT proBNP 170, high-sensitivity troponin is 17 Chest radiograph with multifocal pneumonia cardiomegaly and prior sternotomy EKG sinus rhythm with rate 81 bpm meets criteria for LVH TWI in I, V2 through V6. No ST segment elevation Admitted for further care. 08/21: Seen bedside, still hypoxic requiring 4L/min NCO2 to maintain saturations 94%. No CP, still short of breath, no appetite at all. 08/22/2021 No acute events overnight. Patient seen examined bedside. Saturating 94% on 4 L nasal cannula. Not dyspneic upon my encounter. Dyspnea upon exertion. Patient's chart, labs, images were reviewed and discussed with RN 08/23/2021 Patient seen and examined. Patient is saturating 94% on 4 L nasal cannula. Patient has a cough. Chart Reviewed Discussed with RN 08/24/2021 Patient seen and examined. Patient is saturating 95% on 4L room air. Chart Reviewed Discussed with RN 08/25/2021 Patient seen and examined. Patient is saturating 96% on 4L room air. Chart Reviewed Discussed with RN Discussed with case management Vitals/I&O Vitals/I&O: Vital Signs Date Time Temp Pulse Resp B/P (MAP) Pulse Ox O2 Delivery O2 Flow Rate FiO2 08/25/21 09:52 20 93 Nasal Cannula 4.0 08/25/21 09:51 68 152/74 08/25/21 07:00 98.2 98.2 I & O 08/24/21 08/24/21 08/25/21 15:00 23:00 07:00 Intake Total 300 ml 420 ml Output Total 400 ml Balance 300 ml 20 ml Physical Exam General: Alert, Oriented X3, Cooperative Heart: Regular rate, Normal S1, Normal S2 Lungs: Crackles Abdomen: Normal bowel sounds, Soft Extremities: No clubbing, No cyanosis Skin: No rashes, No breakdown Labs Labs: Laboratory Tests Test 08/24/21 11:38 08/24/21 17:40 08/24/21 19:37 08/25/21 06:50 Glucose (Fingerstick) 188 mg/dL (70-99) 183 mg/dL (70-99) 149 mg/dL (70-99) Prothrombin Time 19.3 SEC (11.7-14.0) Prothromb Time International Ratio 1.6 (0.8-1.1) Sodium Level 143 mmol/L (136-145) Potassium Level 3.2 mmol/L (3.5-5.1) Chloride Level 105 mmol/L (98-107) Carbon Dioxide Level 29 mmol/L (21-32) Anion Gap 9 (6-14) Blood Urea Nitrogen 12 mg/dL (7-20) Creatinine 0.6 mg/dL (0.6-1.0) Estimated GFR (Cockcroft-Gault) 101.3 BUN/Creatinine Ratio 20 (6-20) Glucose Level 122 mg/dL (70-99) Calcium Level 7.8 mg/dL (8.5-10.1) Total Bilirubin 0.4 mg/dL (0.2-1.0) Aspartate Amino Transf (AST/SGOT) 37 U/L (15-37) Alanine Aminotransferase (ALT/SGPT) 33 U/L (14-59) Alkaline Phosphatase 63 U/L (46-116) Total Protein 6.3 g/dL (6.4-8.2) Albumin 2.8 g/dL (3.4-5.0) Albumin/Globulin Ratio 0.8 (1.0-1.7) Test 08/25/21 07:52 Glucose (Fingerstick) 112 mg/dL (70-99) Assessment and Plan Assessmemt and Plan Problems Medical Problems: (1) COVID-19 Status: Acute (2) Respiratory failure with hypoxia Status: Acute Assessment: Acute hypoxic respiratory failure - secondary to COVID-19 pneumonia PMH: Parosysmal A. fib CAD Hypertension Hypokalemia Plan: Continue Levo Titrate O2 down Trend Labs Home Meds DVT prophylaxis Full code Encourage PO intake Planning to D/C with home health today Comment Review of Relevant I have reviewed the following items jennifer (where applicable) has been applied. Medications: Current Medications Medications (Trade) Dose Ordered Sig/Kayla Route PRN Reason Start Time Stop Time Status Last Admin Dose Admin Potassium Chloride (Klor-Con) 40 meq 1X ONCE PO 08/24/21 12:30 08/24/21 12:31 DC 08/24/21 11:56 Warfarin Sodium (Coumadin) 5 mg 1X WARF ONCE PO 08/24/21 16:00 08/24/21 16:01 DC 08/24/21 17:34 Justifications for Admission Other Justification ROSMERY FLORES III DO Aug 25, 2021 11:15
--- NOTE | 2021-08-25 12:16 | NUR ---
Pharmacy Warfarin Dosing Note S: Pharmacy consulted to assist with anticoagulation therapy O: NICO ADRIAN is a 61 year old F with Atrial Fibrillation LABS: Last INR: 1.6 Last HGB: 12.4 Last HCT: 38.2 Last PLT: 328 Last dose of 5 mg given on 08/24/21 at 1600 Vitamin K given: N Ongoing Drug Interactions: levaquin A:INR of 1.6 is below desired range. Target range for this patient is: 2 - 3 P: Warfarin dose: 3 mg Today at 1600 Bridge Therapy: None Pharmacy anticoagulation service will continue to follow. MARILYN DIAL [facility], 08/25/21 0937
[2021-08-25] MEDS ORDERED: LEVO500T9 PO (12:17)
[2021-08-25] MEDS ORDERED: METH4TAB2 PO (12:17)
--- NOTE | 2021-08-25 12:18 | SNU/HH DC ---
DISCHARGE WITH HOME HEALTH DISCHARGE INFORMATION: Final Diagnosis: Problems Medical Problems: (1) COVID-19 Status: Acute (2) Respiratory failure with hypoxia Status: Acute Condition on Discharge: Stable CODE STATUS: Code Status: Full HOME HEALTH: Face to Face: I certify this patient is under my care and that I, or a nurse practitioner or physician's certified ophthalmic assistant working with me, had a face to face encounter that meets the physician face to face encounter requirements with this patient on []. Medical Complications: Other (Recent Covid-19) Custodial For: Assess & Educate Safety RN For Eval/Treatment: Yes Physical Therapy For: Evalulation/Treatment Occupational Therapy For: Evaluation/Treatment Home Health Aide For: Self-care BIAS CUTTER For: Community Resources Pt Meets Homebound Status: Poor coordination w/ amb. POST DISCHARGE ORDERS: Activity Instructions for Disc: Activity as tolerated Weight Bearing Status after Di: No restrictions DIET AFTER DISCHARGE: Cardiac TREATMENT/EQUIPMENT ORDERS: Adaptive Equipment Issued: None CERTIFICATION STATEMENT: Certification Statement: Certification Statement: Based on the above finding, I certify that this patient is confined to the home and needs intermittent shelter care, physical therapy and/or speech therapy, or continues to need occupational therapy.~ This patient is under my care, and I have initiated the establishment of the plan of care.~ This patient will be followed by myself or a community physician who will periodically review the plan of care. Home Meds Active Scripts Methylprednisolone (MEDROL) 4 Mg Tab.ds.pk, 1 PKG PO UD for ., #1 PKG Prov:CASTLE,NIAL K III DO 08/25/21 Levofloxacin (LEVOFLOXACIN) 500 Mg Tablet, 500 MG PO Q24H for . for 7 Days, #7 TAB Prov:CASTLE,NIAL K III DO 08/25/21 Metoprolol Succinate (Metoprolol Succinate) 50 Mg Tab.er.24h, 50 MG PO DAILY, #30 TAB Prov:SHANNAN VIZCAINO MD 09/12/16 Clonazepam (KLONOPIN) 0.5 Mg Tablet, 0.25 MG PO PRN Q6HRS PRN for ANXIETY / AGITATION, #20 Prov:EMI BARRETO MD 04/03/15 Pantoprazole Sodium (PROTONIX ) 40 Mg Tablet, 40 MG PO DAILYAC, #30 TAB Prov:SHANNAN VIZCAINO MD 11/15/14 Reported Medications Baclofen (BACLOFEN) 10 Mg Tablet, 10 MG PO TID for MUSCLE RELAXER, #30 TAB 0 Refills 09/11/16 Gabapentin (GABAPENTIN) 300 Mg Capsule, 300 MG PO BID 09/11/16 Warfarin Sodium (WARFARIN SODIUM) 3 Mg Tablet, 1 TAB PO DAILY, #30 TAB 5 Refills 09/11/16 Hydrocodone Bit/Acetaminophen (HYDROCODONE-APAP 10325 ) 1 Each Tablet, 1 TAB PO PRN Q4HRS PRN for PAIN, TAB 0 Refills 09/11/16 Metformin Hcl (METFORMIN HCL) 500 Mg Tablet, 500 MG PO BIDWMEALS for ANTI- DIABETIC, TAB 0 Refills 08/29/15 Temazepam (TEMAZEPAM) 30 Mg Capsule, 1 CAP PO QHS, #30 CAP 1 Refill 08/24/14 Sucralfate (SUCRALFATE) 1 Gm Tablet, 1 TAB PO TIDWMEALHC, #90 TAB 11 Refills 08/24/14 Dicyclomine Hcl (BENTYL) 10 Mg Capsule, 1 CAP PO TID, #90 CAP 1 Refill 08/24/14 Fluticasone Propionate (FLONASE) 16 Gm [place].susp, 2 SPRAY NS DAILY, #16 GM 04/28/14 Paroxetine Hcl (PAROXETINE HCL) 20 Mg Tablet, 1 TAB PO DAILY, #30 TAB 5 Refills 04/28/14 Nortriptyline Hcl (NORTRIPTYLINE HCL) 50 Mg Capsule, 50 MG PO HS, CAP 04/28/14 ROSMERY FLORES III DO Aug 25, 2021 12:18
--- NOTE | 2021-08-25 12:45 | DS ---
DATE OF DISCHARGE: 08/25/2021 ADMITTING DIAGNOSIS: Respiratory failure. DISCHARGE DIAGNOSES: Resolving COVID-19 respiratory failure, resolving pneumonia, history of atrial fibrillation, chronic anticoagulation, coronary artery disease, hypertension, and hypokalemia. CONSULTS: None. PROCEDURES: None. HOSPITAL COURSE: The patient is a pleasant, middle-aged female who presented with COVID-19 respiratory failure. She was admitted. We gave her full COVID protocol including steroids, vitamins, oxygen, antibiotics, cough syrup, deep venous thrombosis prophylaxis. Over the past few days, she has slowly returned to her baseline. We plan to discharge. DISPOSITION: Home. ACTIVITY: As tolerated. DIET: Low sodium. DISCHARGE MEDICATIONS: Please see the MRAD. Medrol Dosepak, Levaquin 500 p.o. every day, Medrol Dosepak, baclofen 10 t.i.d., clonazepam 0.25 p.r.n. Bentyl 10 t.i.d., Flonase, gabapentin 300 b.i.d., p.r.n. hydrocodone, metformin 500 b.i.d., metoprolol 50 daily, nortriptyline 50 at bedtime, Protonix 40 a day, paroxetine 20 a day, Carafate 1 g before meals and at bedtime, temazepam 30 at bedtime and Coumadin 3 mg a day. TOTAL TIME: [address]: Bridger TID: [id number]
--- NOTE | 2021-08-25 14:10 | NUR ---
DISCHARGE INSTRUCTIONS GIVEN, QUESTIONS AND CONCERNS ANSWERED, PATIENT VERBALIZED UNDERSTANDING INCLUDING TAKING ALL MEDICATIONS INSTRUCTED AND FOLLOWING UP WITH HER PRIMARY PROVIDER IN 1-2 WEEKS, PATIENT ENCOURAGED TO USE OXYGEN AT 2 LITERS PER /C WITH EXERTION, (OXYGEN TANK PROVIDED BY SHIP MANAGER, INSTRUCTION AND DEMONSTRATION OF USE GIVEN BY THIS NURSING INFORMATICS SPECIALIST). ALL PERSONAL BELONGINGS GATHERED BY THE PATIENT AND PLACED IN BAGS FOR DISCHARGE.
--- NOTE | 2021-08-25 15:07 | NUR ---
PATIENT LEAVES THE UNIT PER W/C, EMOTIONAL SUPPORT GIVEN, FOLLOW UP APPOINTMENTS ENCOURAGED.
[2021-08-25] MEDS ORDERED: WARFARIN 3 MG TABLET. PO ONE (16:00)
== END 2021-08-25 15:07 | disposition home health service (06) | DRG 177 ==
LOC: ER 11:16 → ED HOLD 11:40 → 5 NORTH 08-21 16:20
PROVIDERS: ADMIT Student in an Organized Health Care Education/Training Program; ATTEND Student in an Organized Health Care Education/Training Program
DX: U07.1 COVID-19 (principal); J12.82 Pneumonia due to coronavirus disease 2019; J96.01 Acute respiratory failure with hypoxia; J44.0 Chronic obstructive pulmonary disease with (acute) lower respiratory infection; E87.6 Hypokalemia; I11.9 Hypertensive heart disease without heart failure; I25.10 Atherosclerotic heart disease of native coronary artery without angina pectoris; I48.91 Unspecified atrial fibrillation; M79.7 Fibromyalgia; Z79.01 Long term (current) use of anticoagulants; Z82.49 Family history of ischemic heart disease and other diseases of the circulatory system; Z88.1 Allergy status to other antibiotic agents; Z90.49 Acquired absence of other specified parts of digestive tract; Z90.710 Acquired absence of both cervix and uterus; Z88.0 Allergy status to penicillin; Z88.2 Allergy status to sulfonamides; Z88.8 Allergy status to other drugs, medicaments and biological substances
CPT/HCPCS: 36415; 71045; 80053; 82962; 83036; 83735; 83880; 84484; 85025; 85027; 85610; 93005; 94618; J1100; J1200; J1815; J1956; J2405; J3010; J3475; J3480; J3490; 97110-GP; 97116-GP; 97530-GO; 97530-GP; 97535-GO; 99285-25; G0378